=== PATIENT | female | born 1945 | race Caucasian/White ===

== ENCOUNTER → 2017-07-08 08:55 | Outpatient (CLI) | payer MEDICARE, SELFPAY ==
--- NOTE | 2017-07-08 08:57 | BI_ITS ---
MAMMOGRAPHY - BILATERAL SCREENING 3-D SMITHA SYNTHESIS REASON FOR EXAM: Female, 72 years old. Bilateral Screening 3-D tomosynthesis PERTINENT HISTORY: No significant family history. TECHNIQUE: 2-D mammograms and 3-D Smitha synthesis of the breast (s) were performed. CAD was performed. COMPARISON: None. FINDINGS: The breast composition is heterogeneously dense that can obscure small breast masses. Scattered benign calcifications are seen. No dense spiculated masses or suspicious microcalcifications are identified. No architectural distortion is identified. There is no skin thickening or retraction. There has been no significant change since the prior study. BI/SCREENING MAMM (CAD), BILAT IMPRESSION: No mammographic signs of malignancy. Routine yearly mammograms recommended. ASSESSMENT CATEGORY: BIRADS Category 2: Benign. A letter regarding these results will be sent to the patient by the facility within 30 days. FOLLOW UP RECOMMENDATION: Yearly follow up mammogram recommended. (A) Approximately 10% of breast cancers are not detected by mammography. A normal mammogram should not delay biopsy of a clinically suspicious abnormality. Electronically Signed: Dustin Jewell MD at 11:37 EDT , Service support ,
== END ==
PROVIDERS: Family Provider Family Medicine; PCP Family Medicine; Visit Provider Family Medicine
DX: Z12.31 Encounter for screening mammogram for malignant neoplasm of breast (principal)
CPT/HCPCS: 77063; 77067

== ENCOUNTER → 2018-07-11 12:42 | Outpatient (CLI) | payer MEDICARE, SELFPAY ==
--- NOTE | 2018-07-11 12:50 | CDU_ITS ---
Reason For Study: DIZZINESS Rt. Velocities/BP Lt. Velocities/BP Prox CCA 64/15 cm/sec. Prox CCA 79/23 cm/sec. Mid CCA 67/17 cm/sec. Mid CCA 81/20 cm/sec. Dist CCA 68/23 cm/sec. Dist CCA 72/23 cm/sec. Prox ICA 62/23 cm/sec. Prox ICA 54/20 cm/sec. Mid ICA 62/20 cm/sec. Mid ICA 76/30 cm/sec. Dist ICA 80/29 cm/sec. Dist ICA 83/32 cm/sec. Rt. ICA/CCA = 1.2. Lt. ICA/CCA = 1.0. Prox ECA 101/11 cm/sec. Prox ECA 102/10 cm/sec. Rt. Vert. 47/10 cm/sec. Lt. Vert. 49/15 cm/sec. Right Extracranial There is intimal thickening but no significant atherosclerotic plaque noted in the right common carotid artery. There is homogeneous, irregular atherosclerotic plaque noted in the right internal carotid artery. There is homogeneous, smooth atherosclerotic plaque noted in the right external carotid artery. Antegrade flow is noted in the right vertebral artery. Left Extracranial There is homogeneous, smooth atherosclerotic plaque noted in the left common carotid artery. There is heterogeneous, irregular atherosclerotic plaque noted in the left internal carotid artery. There is homogeneous, smooth atherosclerotic plaque noted in the left external carotid artery. Antegrade flow is noted in the left vertebral artery. Procedure Carotid Duplex [id number]. Exam performed in department. Interpretation Summary Mild (<50%) stenosis right extracranial internal carotid. Mild (<50%) stenosis left extracranial internal carotid. Flow within the vertebral arteries is antegrade bilaterally. Ordering Physician: Eliazar Brown Referring Physician: Eliazar Brown Performed By: Renetta Moncada, ASHTYN, RVT
== END ==
PROVIDERS: Family Provider Family Medicine; PCP Family Medicine; Referring Provider Family Medicine; Visit Provider Family Medicine
DX: R42 Dizziness and giddiness (principal)
CPT/HCPCS: 93880

== ENCOUNTER → 2019-09-17 | Outpatient (CLI) | payer MEDICARE, SELFPAY ==
--- NOTE | 2019-09-17 15:06 | BI_ITS ---
MAMMOGRAPHY - BILATERAL SCREENING REASON FOR EXAM: Female, 74 years old. Routine annual screening examination. PERTINENT HISTORY: Non-contributory. TECHNIQUE: Digital bilateral breast smitha (3D mammographic acquisition) in the CC and MLO projections. 2-D mediolateral oblique (MLO) and craniocaudad (CC) views of both breasts were obtained. CAD: Full Field Digital Mammography with Computer Added Detection was performed. COMPARISON: Comparison is made with prior study dated July 08, 2017 and September 21, 2015. FINDINGS: Breast Composition: The breasts are heterogeneously dense, which may obscure small masses. There are no dominant masses or suspicious calcifications. No other significant abnormalities are identified. There has been no significant change since the prior study. BI/SCREEN MAMM (CAD) W/SMITHA BILAT IMPRESSION: Stable bilateral screening mammogram. Yearly follow-up mammogram recommended. (A) ASSESSMENT CATEGORY: BIRADS Category 1: Negative. A letter regarding these results will be sent to the patient by the facility within 30 days. Approximately 10% of breast cancers are not detected by mammography. A normal mammogram should not delay biopsy of a clinically suspicious abnormality. [id number] Electronically Signed: Mic Medrano, at 8:03 EDT , Service support ,
== END | disposition home or self-care (01) ==
LOC: OPBI 15:04
PROVIDERS: PCP Family Medicine; Referring Provider Family Medicine; Visit Provider Family Medicine
DX: Z12.31 Encounter for screening mammogram for malignant neoplasm of breast (principal)
CPT/HCPCS: 77063; 77067

== ENCOUNTER → 2020-11-01 09:21 | Outpatient (CLI) | payer MEDICARE, SELFPAY ==
--- NOTE | 2020-11-01 09:30 | BD_ITS ---
STUDY: DUAL ENERGY X-RAY ABSORPTIOMETRY / DXA REASON FOR EXAM: Female, 75 years old. M810. Patient is postmenopausal. TECHNIQUE: Bone Mineral Density (BMD) measurements of lumbar spine and bilateral hips were obtained. COMPARISON: None. FINDINGS: Lumbar Spine (L1-L4): g/cm2 (0.838) / T-score (-1.9) / Z-score (0.6) Findings are suggestive of osteopenia with a moderate fracture risk. Left Femur Total: g/cm2 (0.790) / T-score (-1.2) / Z-score (0.7) Left Femoral Neck: g/cm2 (0.6-2) / T-score (-2.0) / Z-score (0.2) Right Femur Total: g/cm2 (0.86) / T-score (-0.6) / Z-score (1.3) Right Femoral Neck: g/cm2 (0.732) / T-score (1.1) / Z-score (1.1) BD/Dexa Bone Density Study IMPRESSION: The patient is considered osteopenic as outlined below according to World George Organization (WHO) criteria with a moderate fracture risk. Reference Information: The T-score is the number of standard deviations above or below the standard which is normal for young adults at their peak bone mineral density. The World Health Organization (WHO) interprets the T-scores as follows: Above -1 Normal bone density Between -1 and -2.5 Osteopenia Equal to / or below -2.5 Osteoporosis As a practical clinical guideline, osteopenia may be graded as follows: Mild -1 through -1.5 Moderate -1.6 through -2.0 Severe -2.1 through -2.4 The Z-score is the number of standard deviations above or below age-matched controls. A Z-score of less than -1.5 would be considered abnormal. References: 1. NIH Osteoporosis and Related Bone Diseases www osteo.org 2. International Society for Clinical Densitometry www iscd.org 3. National Osteoporosis Foundation www nof.org Electronically Signed: Mic Medrano MD at 14:48 EDT , Service support ,
== END ==
PROVIDERS: PCP Family Medicine; Referring Provider Family Medicine; Visit Provider Family Medicine
DX: M81.0 Age-related osteoporosis without current pathological fracture (principal); Z78.0 Asymptomatic menopausal state
CPT/HCPCS: 77080

== ENCOUNTER → 2022-04-13 | Outpatient (CLI) | payer MEDICARE, SELFPAY ==
--- NOTE | 2022-04-13 13:24 | BI_ITS ---
MAMMOGRAPHY - BILATERAL SCREENING REASON FOR EXAM: Female, 77 years old. Routine annual screening examination. PERTINENT HISTORY: Non-contributory. TECHNIQUE: Digital bilateral breast smitha (3D mammographic acquisition) in the CC and MLO projections. 2-D mediolateral oblique (MLO) and craniocaudad (CC) views of both breasts were obtained. CAD: Full Field Digital Mammography with Computer Added Detection was performed. COMPARISON: Comparison is made with prior examination dated 09/17/2019 and 07/08/2017. FINDINGS: Breast Composition: The breasts are heterogeneously dense, which may obscure small masses. There are no dominant masses or suspicious calcifications. Stable small benign-appearing bilateral axillary lymph nodes. No other significant abnormalities are identified. There has been no significant change since the prior study. BI/SCRN MAMM (CAD)W/SMITHA BILAT IMPRESSION: Stable bilateral screening mammogram. Yearly follow-up mammogram recommended. (A) ASSESSMENT CATEGORY: BIRADS Category 2: Benign. A letter regarding these results will be sent to the patient by the facility within 30 days. Approximately 10% of breast cancers are not detected by mammography. A normal mammogram should not delay biopsy of a clinically suspicious abnormality. [id number] Electronically Signed: Mic Medrano MD at 14:07 EST ,
== END | disposition home or self-care (01) ==
LOC: OPBI 13:21
PROVIDERS: PCP Family Medicine; Referring Provider Family Medicine; Visit Provider Family Medicine
DX: Z12.31 Encounter for screening mammogram for malignant neoplasm of breast (principal)
CPT/HCPCS: 77063; 77067

== ENCOUNTER 2022-11-23 19:08 | Emergency (ER) | payer MEDICARE, SELFPAY ==
[2022-11-23 19:16] VITALS: BP 180/90; PULSE 81; RESP 16; TEMP 36.4; O2SAT 92; BMI 25.8
[2022-11-23 19:40] LABS: Absolute Lymphocyte Count 1.51 X10^3/uL (0.83-4.51); Absolute Neutrophil Count 5.8 X10^3/uL (2.0-7.7); Basophil# 0.05 X10^3/uL; Basophil% 0.6 % (0-1); Eosinophil# 0.22 X10^3/uL; Eosinophils% 2.8 % (0-5); Hematocrit 46.5 % (37-47); Hemoglobin 14.9 g/dL (12.0-15.0); Lymphocyte # 1.51 X10^3/ul (0.83-4.51); Lymphocyte % 19.1 % (19-41); Mean Corpuscular Hgb 28.8 pg (27.0-32.0); Mean Corpuscular Volume 89.9 fL (81-99); Mean Platelet Vol. 10.5 fl (6.2-12.0); Monocyte# 0.35 X10^3/uL; Monocyte% 4.4 % (0-10); NRBC Flagged by Analyzer 0 % (0-5); Neutrophil # 5.76 X10^3/uL (2.7-7.7); Neutrophil % 72.8 % (47-70); Platelet Count 208 K/mm3 (150-450); RBC Distribution Width CV 13.2 % (11.6-14.6); RBC Distribution Width SD 43.5 fl (35.1-43.9); Red Blood Count 5.17 M/mm3 (4.2-5.4); White Blood Count 7.9 K/mm3 (4.4-11.0)
[2022-11-23 20:02] LABS: Anion Gap 4 (5-15); BUN 15 mg/dL (7-18); Calcium,Total 9.1 mg/dL (8.5-10.1); Chloride 105 mmol/L (98-107); Creatinine, Serum 0.65 mg/dL (0.55-1.02); EST Glomerular Filtration Rate 93 mL/min (>60); Est Glom Filt Rate - Afr Amer 113 mL/min (>60); Estimated Creatinine Clearance 37.74 ml/min; Glucose 126 mg/dL (74-106); Potassium 3.5 mmol/L (3.5-5.1); Sodium Level 140 mmol/L (136-145)
[2022-11-23 21:37] VITALS: RESP 22; O2SAT 94
[2022-11-23 21:41] VITALS: O2SAT 24
[2022-11-23 21:43] VITALS: BP 166/84; PULSE 88; RESP 25; O2SAT 94; O2SAT 95
[2022-11-23 22:18] VITALS: BP 160/90; PULSE 82; RESP 20; O2SAT 93
--- NOTE | 2022-11-23 22:20 | ED.VIS.DYS ---
HPI History of Present Illness Chief Complaint: Shortness of Breath Narrative Narrative: 77-year-old female with history of asthma presenting with shortness of breath. She states she is feeling like she is tight. Patient received a breathing treatment in route via EMS and states she feels much better. No fevers or chills. No cough. She has not feel ill. She actually feels a lot better now that she is been treated. She is not having any chest pain. [facility] Medical History Anxiety Asthma Dementia Former smoker Hypothyroidism Home Medications albuterol sulfate 90 mcg/actuation aerosol inhaler 2 puff inhalation Q4H PRN wheezing 11/23/22 [History Last Taken Unknown] budesonide-formoterol HFA 80 mcg-4.5 mcg/actuation aerosol inhaler (Symbicort) 2 puff inhalation DAILY asthma 11/23/22 [History Last Taken Unknown] cholecalciferol (vitamin D3) 50 mcg (2,000 unit) capsule 2,000 unit PO DAILY 11/23/22 [History Last Taken Unknown] hgwixwve-vvw-sdofe ac 400 mcg-calcium carb 500 mg-vit K1 20 mcg tablet (Women's 50 Plus Daily Formula) 1 tab PO DAILY 11/23/22 [History Last Taken Unknown] pravastatin 40 mg tablet 40 mg PO DAILY 11/23/22 [History Last Taken Unknown] prednisone 50 mg tablet 50 mg PO DAILY #5 tabs 11/23/22 [Rx Last Taken Unknown] Allergy/AdvReac Type Severity Reaction Status Date / Time No Known Allergies Allergy Verified 11/23/22 19:16 Surgical History H/O neck surgery Social History Smoking Status: Former smoker ROS ROS ED Constitutional Constitutional ED: Denies chills, fever(s) or sweats Eyes Eyes: Denies blurry vision or change in vision ENT ENT ED: Denies ear pain or sore throat Cardiovascular Cardiovascular: Denies chest pain, palpitations or racing heartbeat Respiratory/Chest Respiratory/Chest: Reports dyspnea and dyspnea on exertion; Denies cough or sputum Gastrointestinal Gastrointestinal: Denies abdominal pain, constipation, diarrhea, nausea or vomiting Genitourinary Genitourinary ED: Denies dysuria, hematuria or urinary frequency Musculoskeletal Musculoskeletal: Denies arthralgias, myalgias or neck pain Integumentary Denies abscess, Abrasions or rash Neurologic Neurologic: Denies headache(s), paresthesias or weakness Psychiatric Psychiatric: Denies anxiety, depression, suicidal ideation or suicidal thoughts Endocrine Endocrinology: Denies polydipsia or polyuria EXAM Physical Exam Const Vital Signs: 11/23/22 19:16 11/23/22 21:37 11/23/22 21:41 Temperature 97.5 F L Temperature Source Temporal Pulse Rate 81 Respiratory Rate 16 22 H Respiratory Effort Normal Non-Labored Respiratory Depth Normal Respiratory Pattern Normal Blood Pressure 180/90 H Blood Pressure Mean 120 Pulse Ox 92 94 Oxygen Delivery Method Room Air Room Air Room Air 11/23/22 21:43 11/23/22 21:43 11/23/22 22:18 Temperature Temperature Source Pulse Rate 88 82 Respiratory Rate 25 H 20 H Respiratory Effort Respiratory Depth Respiratory Pattern Blood Pressure 166/84 H 160/90 H Blood Pressure Mean 111 Pulse Ox 95 94 93 Oxygen Delivery Method Room Air Room Air Positive well nourished General Appearance ED: NAD HEENT Reports moist mucous membranes Eyes PERRL and EOMs intact bilaterally Neck no lymphadenopathy Resp normal respiratory effort and clear to auscultation bilaterally Auscultation: Negative for rales, rhonchi or wheezes Cardio regular rate and regular rhythm GI non-tender Neuro oriented x3 and CN's II-XII intact bilaterally Sensorium / Orientation: alert Motor Exam: strength 5/5 throughout Psych mental status grossly normal Skin no wounds MDM MDM MDM Narrative Medical decision making narrative: Patient presenting with shortness of breath. She feels that she is wheezing. She was given a breathing treatment via EMS. Pharyngeal includes pneumonia, asthma exacerbation, COVID, influenza dehydration, electrolyte abnormalities. Patient was not wheezing on my initial examination after breathing treatments. CBC was obtained to assess white blood cell count, hemoglobin and platelets and this was all normal. Renal function electrolytes within normal limits. Patient was given prednisone 60 mg p.o. COVID and influenza were negative. Since blood work is unremarkable I do not feel chest x-ray. She got up and went to the bathroom and started to have some wheezing and breathing treatment. At this point she is feeling better and I feel she can be safely discharged home. Impression: 1. Asthma exacerbation Lab Data Attestation: I reviewed the patient's lab results. Labs: Laboratory Results - last 24 hr 11/23/22 19:30 WBC 7.9 RBC 5.17 Hgb 14.9 Hct 46.5 MCV 89.9 MCH 28.8 MCHC 32.0 RDW Std Deviation 43.5 RDW Coeff of Theresa 13.2 Plt Count 208 MPV 10.5 Immature Gran % (Auto) 0.300 Neut % (Auto) 72.8 H Lymph % (Auto) 19.1 [place] % (Auto) 4.4 Eos % (Auto) 2.8 Baso % (Auto) 0.6 Absolute Neuts (auto) 5.8 Absolute Lymphs (auto) 1.51 Nucleated RBC % 0 Sodium 140 Potassium 3.5 Chloride 105 Carbon Dioxide 31.0 Anion Gap 4 L BUN 15 Creatinine 0.65 Estim Creat Clear Calc 37.74 Est GFR (MDRD) Af Amer 113 Est GFR (MDRD) Non-Af 93 BUN/Creatinine Ratio 23.0 H Glucose 126 H Calcium 9.1 Discharge Plan Triage Chief Complaint: Shortness of Breath ED Provider: Jacob Mar Dx/Rx/DC Orders Instructions: ED Asthma, Acute (Adult) Prescriptions: New prednisone 50 mg tablet 50 mg PO DAILY Qty: 5 0RF No Action albuterol sulfate 90 mcg/actuation HFA aerosol inhaler 2 puff INHALATION Q4H PRN (Reason: wheezing) budesonide-formoterol [Symbicort] 80-4.5 mcg/actuation HFA aerosol inhaler 2 puff INHALATION DAILY pravastatin 40 mg tablet 40 mg PO DAILY Women's 50 Plus Daily Formula 400 mcg-500 mg calcium-20 mcg tablet 1 tab PO DAILY cholecalciferol (vitamin D3) 50 mcg (2,000 unit) capsule 2,000 unit PO DAILY Primary Care Provider: Eliazar Brown Referrals: Eliazar Bronw MD [Primary Care Provider] - Disposition Disposition: Home, Self Care Discharge Date/Time: 11/23/22 22:45
[2022-11-23] MEDS: predniSONE 20 MG Tablet 60 MG PO (22:24)
[2022-11-23] MEDS: Albuterol 2.5 MG/3 ML VIAL.NEB. INHALATION (22:38)
== END 2022-11-23 22:45 | disposition home or self-care (01) ==
PROVIDERS: Emergency Provider Student in an Organized Health Care Education/Training Program; PCP Family Medicine; Visit Provider Student in an Organized Health Care Education/Training Program
DX: J45.901 Unspecified asthma with (acute) exacerbation (principal); Z87.891 Personal history of nicotine dependence; Z79.899 Other long term (current) drug therapy; Z79.52 Long term (current) use of systemic steroids; Z79.51 Long term (current) use of inhaled steroids
CPT/HCPCS: 80048; 85025; 87811; 94640; 99285; A4216

== ENCOUNTER → 2024-01-10 | Outpatient (CLI) | payer MEDICARE, SELFPAY ==
[2024-01-10 12:25] LABS: Absolute Lymphocyte Count 1.45 X10^3/uL (0.83-4.51); Absolute Neutrophil Count 4.3 X10^3/uL (2.0-7.7); Basophil# 0.05 X10^3/uL; Basophil% 0.8 % (0-1); Eosinophil# 0.14 X10^3/uL; Eosinophils% 2.2 % (0-5); Hematocrit 49.2 % (37-47); Hemoglobin 15.6 g/dL (12.0-15.0); Lymphocyte # 1.45 X10^3/ul (0.83-4.51); Lymphocyte % 22.8 % (19-41); Mean Corp Hgb Conc 31.7 g/dL (32-36); Mean Corpuscular Hgb 28.5 pg (27.0-32.0); Mean Corpuscular Volume 89.9 fL (81-99); Mean Platelet Vol. 10.9 fl (6.2-12.0); Monocyte# 0.46 X10^3/uL; Monocyte% 7.2 % (0-10); NRBC Flagged by Analyzer 0 % (0-5); Neutrophil # 4.25 X10^3/uL (2.7-7.7); Neutrophil % 66.7 % (47-70); Platelet Count 227 K/mm3 (150-450); RBC Distribution Width CV 13.6 % (11.6-14.6); Red Blood Count 5.47 M/mm3 (4.2-5.4); White Blood Count 6.4 K/mm3 (4.4-11.0)
[2024-01-10 13:02] LABS: AST(SGOT) 26 U/L (15-37); Alanine Aminotransfer ALT/SGPT 25 U/L (13-56); Albumin, Serum 3.8 g/dL (3.2-5.0); Alkaline Phosphatase 81 U/L (45-117); Anion Gap 5 (5-15); BUN 13 mg/dL (7-18); BUN/Creat Ratio 19.7 RATIO (10-20); Calcium,Total 9.3 mg/dL (8.5-10.1); Chloride 106 mmol/L (98-107); Cholesterol 219 mg/dL (200); Creatinine, Serum 0.66 mg/dL (0.55-1.02); EST Glomerular Filtration Rate 91 mL/min (>60); Est Glom Filt Rate - Afr Amer 110 mL/min (>60); Globulin 3.8 g/dL (2.2-4.2); Glucose 82 mg/dL (74-106); High Density Lipoprotein 99 mg/dL; Protein, Total 7.6 g/dL (6.4-8.2); Sodium Level 142 mmol/L (136-145); Triglycerides 80 mg/dL; Very Low Density Lipoprotein 16 mg/dL (5-40)
[2024-01-10 14:08] LABS: Vitamin D,25 Hydroxy 38.6 ng/mL
== END | disposition home or self-care (01) ==
LOC: MTLAB 11:11
PROVIDERS: PCP Nurse Practitioner Family; Referring Provider Nurse Practitioner Family; Visit Provider Nurse Practitioner Family
DX: E78.5 Hyperlipidemia, unspecified (principal); I10 Essential (primary) hypertension; E55.9 Vitamin D deficiency, unspecified
CPT/HCPCS: 36415; 80053; 80061; 82306; 85025

== ENCOUNTER → 2024-04-14 | Outpatient (CLI) | payer MEDICARE, SELFPAY ==
--- NOTE | 2024-04-14 12:31 | BI_ITS ---
PROCEDURE: SCRN MAMM (CAD)W/SMITHA BILAT REASON FOR EXAM: F, Age 79 y/o, presents for annual screening mammography. TECHNIQUE: Bilateral screening digital breast tomosynthesis with 2D and 3D images. Computer aided detection. COMPARISON: No priors available. FINDINGS: There are scattered areas of fibroglandular density. No suspicious masses, areas of developing architectural distortion, or suspicious calcifications. BI/SCRN MAMM (CAD)W/SMITHA BILAT IMPRESSION: There is no mammographic evidence of malignancy. BI-RADS 1: NEGATIVE. RECOMMEND ANNUAL MAMMOGRAPHIC SCREENING. Follow-up code: Routine Follow-up The patient will be notified of the results by letter. Reading Location: [id number]
== END | disposition home or self-care (01) ==
LOC: OPBI 12:29
PROVIDERS: PCP Nurse Practitioner Family; Referring Provider Nurse Practitioner Family; Visit Provider Nurse Practitioner Family
DX: Z12.31 Encounter for screening mammogram for malignant neoplasm of breast (principal)
CPT/HCPCS: 77063; 77067

== ENCOUNTER 2024-12-23 16:30 | Emergency (ER) | payer MEDICARE, SELFPAY ==
[2024-12-23 16:31] VITALS: BP 161/96; PULSE 92; RESP 21; TEMP 36.4; O2SAT 100; BMI 24.8
--- NOTE | 2024-12-23 17:04 | EDS_ITS ---
HPI History of Present Illness Chief Complaint: Hypertension Informant: patient Onset/Context/Timing Onset: Days Context: Gradual Onset Timing: Waxes and wanes Worsened by: Stress Relieved by: Nothing Narrative Narrative: Patient presents with elevated blood pressures that have been getting worse over the past couple days. Patient states they are gradually getting worse. Patient states she is under stress at work which is causing her blood pressure become elevated. Patient states that her blood pressures today were 205/99, 192/105, and 193/92 just prior to coming to the emergency department. Patient denies any chest pain or shortness of breath. Patient does admit to some pain in her back. Patient denies any fevers or chills. Patient denies any nausea or vomiting. Patient denies any headaches. Patient denies any visual changes. [facility] Medical History (Updated 12/23/24 @ 19:[address] Javon Matthew, ) Anxiety Hypothyroidism Former smoker Asthma Dementia Home Medications ?Medication ?Instructions ?Recorded ?Last Taken ?Type albuterol sulfate 90 mcg/actuation 2 puff inhalation Q 4H PRN wheezing 11/23/22 Unknown History aerosol inhaler budesonide-formoterol HFA 80 2 puff inhalation DAILY a sthma 11/23/22 Unknown History mcg-4.5 mcg/actuation aerosol inhaler (Symbicort) cholecalciferol (vitamin D3) 50 2,000 unit PO DAILY Unknown History mcg (2,000 unit) capsule ashibkpe-jwp-ryhwe ac 400 1 tab PO DAILY 11/23/22 Unkn own History mcg-calcium carb 500 mg-vit K1 20 mcg tablet (Women's 50 Plus Daily Formula) pravastatin 40 mg tablet 40 mg PO DAILY 11/23/22 Unkn own History prednisone 50 mg tablet 50 mg PO DAILY #5 tabs 11/23 Unknown Rx amlodipine 5 mg tablet 5 mg PO DAILY #7 tabs Unknown Rx Allergy/AdvReac Type Severity Reaction Status Date / Time No Known Allergies Allergy Verified 12/23/24 16:31 Surgical History H/O neck surgery Social History Smoking Status: Former smoker ROS ROS ED Constitutional Constitutional ED: Denies chills or fever(s) Eyes Eyes: Denies blurry vision or change in vision ENT ENT ED: Denies rhinorrhea or sore throat Cardiovascular Cardiovascular: Denies chest pain or palpitations Respiratory/Chest Respiratory/Chest: Denies cough or dyspnea Gastrointestinal Gastrointestinal: Denies nausea or vomiting Genitourinary Genitourinary ED: Denies dysuria or hematuria Musculoskeletal Musculoskeletal: Reports back pain; Denies neck pain Integumentary Denies abscess or rash Neurologic Neurologic: Denies headache(s) or weakness Allergic/Immunologic Allergic/Immunologic ED: Denies mouth swelling or urticaria EXAM Physical Exam Const Vital Signs: 12/23/24 16:31 12/23/24 17:41 12/23/24 18:46 Temperature 97.5 F L Temperature Source Temporal Pulse Rate 92 70 Respiratory Rate 21 H 16 Respiratory Effort Normal Non-Labored Respiratory Pattern Normal Blood Pressure 161/96 H 140/84 H Blood Pressure Mean 117 102 Pulse Ox 100 98 Oxygen Delivery Method Room Air Room Air Positive well nourished and well developed General Appearance ED: well developed and NAD HEENT Reports moist mucous membranes Neck supple and no JVD Resp normal respiratory effort and clear to auscultation bilaterally Cardio regular rate and regular rhythm GI non-tender and non-distended Palpation: soft Extremity normal to inspection General Extremety ED: Negative for edema or tenderness General Extremity: Negative for edema Neuro oriented x3, CN's II-XII intact bilaterally and no sensory deficits noted Sensorium / Orientation: alert Motor Exam: strength 5/5 throughout Psych mental status grossly normal MDM MDM MDM Narrative Medical decision making narrative: Differential diagnosis includes but is not limited to cardiac dysrhythmia, cardiac ischemia, hypertensive urgency, hypertensive emergency, electrolyte abnormality, and anxiety. EKG will be obtained to assess for cardiac dysrhythmia and cardiac ischemia. Chest x-ray will be obtained to assess for pneumonia, bronchitis, and widened mediastinum. CBC will be obtained to assess for leukocytosis and anemia. Basic metabolic profile will be obtained to assess for electrolyte abnormality and renal function. Lab Data Attestation: I reviewed the patient's lab results. Lab results narrative: CBC was reviewed and was essentially within normal limits. Basic metabolic profile was reviewed and was essentially within normal limits. High-sensitivity troponin was reviewed and was normal at 7. Labs: Laboratory Results - last 24 hr 12/23/24 17:29 WBC 7.2 RBC 5.36 Hgb 15.6 H Hct 47.1 H MCV 87.9 MCH 29.1 MCHC 33.1 RDW Std Deviation 43.2 RDW Coeff of Theresa 13.2 Plt Count 256 MPV 10.5 Immature Gran % (Auto) 0.300 Neut % (Auto) 80.0 H Lymph % (Auto) 14.5 L [place] % (Auto) 4.6 Eos % (Auto) 0.3 Baso % (Auto) 0.3 Absolute Neuts (auto) 5.8 Absolute Lymphs (auto) 1.04 Nucleated RBC % 0 Sodium 141 Potassium 3.8 Chloride 102 Carbon Dioxide 27.8 Anion Gap 11 BUN 17 Creatinine 0.56 L Estim Creat Clear Calc 49.56 L Est GFR (MDRD) Non-Af 92 BUN/Creatinine Ratio 29.7 H Glucose 103 H Calcium 9.5 Troponin T High Sens 7 Radiography Chest X-Ray - ED: 2 View, Read by ED Physician, Read by Radiologist and No Acute Disease Diagnostic Testing: Clinical Impression(s) from Imaging Studies Chest X-Ray 12/23/24 17:48 IMPRESSION: Hyperaerated lungs which may reflect COPD. Reading Location: [address] [place] and lateral chest x-ray was obtained. There are 2 views. On my independent interpretation, lung tsang are hyperinflated but clear. There is normal cardiac silhouette. Bony thorax is normal. There is no acute process noted. Radiologist also interpreted the x-ray and agrees. EKG Initial EKG: Attestation: I personally reviewed and interpreted this EKG as follows: Interpretation: Sinus Rhythm (74) and No Acute Injury Pattern Comments: EKG was obtained. On my independent interpretation, it showed a normal sinus rhythm with a rate of 74. FL interval, QRS interval, and QTc intervals were all normal. [place] was normal. There are no acute ST or T wave changes. Prior EKG tracings: not available for review Prior: No Prior Treatment and Re-Evaluation :: Patient was advised of her findings. Patient's blood pressure improved to 140/84. However, just prior to discharge it went back up again to 181/84. Because of this, patient was given a dose of amlodipine here. Patient was given a prescription for amlodipine. Patient was instructed to follow-up with her primary care physician in 3 to 5 days for further evaluation and blood pressure management. Patient understood and was agreeable with the plan. All questions were answered. Discharge Plan Triage Chief Complaint: Hypertension ED Provider: Jvaon Matthew Dx/Rx/DC Orders Clinical Impression: Elevated blood pressure reading, Anxiety Instructions: ED High Blood Pressure Hypertension Prescriptions: New amlodipine 5 mg tablet 5 mg PO DAILY Qty: 7 0RF No Action albuterol sulfate 90 mcg/actuation HFA aerosol inhaler 2 puff INHALATION Q4H PRN (Reason: wheezing) budesonide-formoterol [Symbicort] 80-4.5 mcg/actuation HFA aerosol inhaler 2 puff INHALATION DAILY pravastatin 40 mg tablet 40 mg PO DAILY Women's 50 Plus Daily Formula 400 mcg-500 mg calcium-20 mcg tablet 1 tab PO DAILY cholecalciferol (vitamin D3) 50 mcg (2,000 unit) capsule 2,000 unit PO DAILY prednisone 50 mg tablet 50 mg PO DAILY Qty: 5 0RF Primary Care Provider: Lin Reid Referrals: Lin Reid, [facility] [Primary Care Provider, Family Practice] - 3-5 Days Print Language: Portuguese Disposition Disposition: Home, Self Care
--- NOTE | 2024-12-23 17:04 | EKG12_ITS ---
Test Reason : CP Blood Pressure : */* mmHG Vent. Rate : 74 BPM Atrial Rate : 74 BPM P-R Int : 170 ms QRS Dur : 86 ms QT Int : 418 ms P-R-T Axes : 64 17 52 degrees QTcB Int : 463 ms Normal sinus rhythm Normal ECG Confirmed by JESE KLINE, KASEY ([id number]), staff editor OSEAS FERRIS ([id number]) on 12/24/2024 9:53:48 AM Referred By: Confirmed By: KASEY SAWANT MD
--- NOTE | 2024-12-23 17:48 | RAD_ITS ---
PROCEDURE: CHEST PA AND LATERAL 12/23/2024 REASON FOR EXAM: HYPERTENSION TECHNIQUE: Procedure Code: RADCXR Modality: DX Procedure: CHEST PA AND LATERAL FINDINGS: The heart is normal in size. The lungs are clear. Lungs are hyperaerated. No acute osseous abnormalities. RAD/Chest PA and Lateral IMPRESSION: Hyperaerated lungs which may reflect COPD. Reading Location: [id number]
[2024-12-23 17:56] LABS: Hematocrit 47.1 % (37-47); Hemoglobin 15.6 g/dL (12.0-15.0); Immature Granulocytes Count 0.020 X10^3/uL (0.0-0.0); Mean Corp Hgb Conc 33.1 g/dL (32-36); Mean Corpuscular Volume 87.9 fL (81-99); Mean Platelet Vol. 10.5 fl (6.2-12.0); NRBC Flagged by Analyzer 0 % (0-5); Platelet Count 256 K/mm3 (150-450); RBC Distribution Width CV 13.2 % (11.6-14.6); RBC Distribution Width SD 43.2 fl (35.1-43.9); Red Blood Count 5.36 M/mm3 (4.2-5.4); White Blood Count 7.2 K/mm3 (4.4-11.0)
[2024-12-23 18:32] LABS: Anion Gap 11 (5-15); BUN 17 mg/dL (4-19); BUN/Creat Ratio 29.7 RATIO (10-20); Calcium,Total 9.5 mg/dL (7.6-11.0); Carbon Dioxide 27.8 mmol/L (21.0-32.0); Chloride 102 mmol/L (98-108); Estimated Creatinine Clearance 49.56 ml/min (50-250); Glucose 103 mg/dL (70-99); Potassium 3.8 mmol/L (3.3-5.1)
[2024-12-23 18:46] VITALS: BP 140/84; PULSE 70; RESP 16; O2SAT 98
[2024-12-23 18:57] LABS: Troponin T High Sensitivity 7 ng/L (<=14)
[2024-12-23 19:55] VITALS: BP 183/70; PULSE 78; RESP 18; TEMP 36.2; O2SAT 98
== END 2024-12-23 19:56 | disposition home or self-care (01) ==
PROVIDERS: Emergency Provider Emergency Medicine; PCP Nurse Practitioner Family; Visit Provider Emergency Medicine
DX: I10 Essential (primary) hypertension (principal); F41.9 Anxiety disorder, unspecified; M54.9 Dorsalgia, unspecified; Z87.891 Personal history of nicotine dependence; J45.909 Unspecified asthma, uncomplicated; Z79.899 Other long term (current) drug therapy; Z56.6 Other physical and mental strain related to work
CPT/HCPCS: 71046; 80048; 84484; 85025; 93005; 99284; A4216

== ENCOUNTER 2025-02-04 16:08 | Emergency (ER) | payer MEDICARE, SELFPAY ==
[2025-02-04 16:10] VITALS: BP 112/78; PULSE 92; RESP 16; TEMP 36.3; O2SAT 96; BMI 25.7
--- OUTSIDE RECORDS SUMMARY | 2025-02-04 17:23 | XMS RPT_ITS | CCD ---
Author Organization [facility] Care Team Providers Care Can Closing Machine Operator Name Role Phone Eliazar Brown Admitting Unavailable Eliazar Brown Attending Unavailable Eliazar Brown Primary Care Unavailable Bud Quinn Admitting Unavailable Bud Quinn Attending Unavailable Eliazar Brown Primary Care Unavailable Eliazar Brown Admitting Unavailable Eliazar Brown Attending Unavailable Eliazar Brown Primary Care Unavailable Eliazar Brown Unavailable Barb Wise Unavailable Unavailable Franklin, Lin Primary Care Unavailable Franklin, Lin Attending Unavailable Franklin, Lin Referring Unavailable Franklin, Lin Primary Care Unavailable Franklin, Lin Attending Unavailable Franklin, Lin Referring Unavailable Franklin, Lin Primary Care Unavailable Javon Matthew Attending Unavailable Franklin FIRE TOWER KEEPER-C, Lin Primary Care Physician Dr. Javon Matthew DO Attending Physician Dr. Javon Matthew DO Emergency Department Physi dank Allergies Allergy Classification Reported Allergen(s) Allergy Type Date of Onset Reaction(s) Facility (1 source) No Known Medication Allergies; Translations: [No Known Medication Allergies] Propensity to adverse reactions to drug (disorder) [facility] Repository Medications Current Medications Medication Drug Class(es) Dates Sig (Normalized) Sig (Original) [id number] actuat albuterol 0.09 mg/actuat metered dose inhaler (3 sources) beta2-Adrenergic Agonist Start: 11-23-2022 Start: 11-23-2022 take 1 puff(s) by in halation every four hours Albuterol Sulfate Active 2 PUFF INHALATION Q4H November 23, 2022 12:00am take 2 puff(s) by in halation every six hours Albuterol (Eqv-ProAir HFA) 90 mcg/inh inhalation aerosol ; 2 puff(s) inhaled every 6 hours Quantity: 0 Refills: 0 Ordered: 30-Jul-2020 Ghislaine Villa Generic Substitution Allowed alendronic acid 5 mg oral tablet (1 source) Bisphosphonate take 1 tablet by mouth once daily alendronate 5 mg oral tablet ; 1 tab(s) orally once a day Quantity: 0 Refills: 0 Ordered: 30-Jul-2020 Ghislaine Villa Generic Substitution Allowed amLODIPine 5 mg oral tablet (1 source) Dihydropyridine Calcium Channel Rajni Start: 12-24-19 take 1 tablet by mouth once daily Budesonide-Formoter ol [Budesonide-Formote rol Hfa 80 Mcg-4.5 Mcg/Actuation Aerosol Inhaler] (3 sources) Corticosteroid, beta2-Adrenergic Agonist Start: 11-24-19 Start: 11-23-2022 take 1 puff(s) by in halation once daily Budesonide-Formoterol [Budesonide-Formoterol Hfa 80 Mcg-4.5 Mcg/Actuation Aerosol Inhaler] (Budesonide-Formoterol Hfa 80 Mcg-4.5 Mcg/Actuation ) 80-4.5 mcg/actuation HFA aerosol inhaler Active 2 PUFF INHALATION DAILY November 23, 2022 12:00am take 2 puff(s) by in halation twice daily Symbicort 80 mcg-4.5 mcg/inh inhalation aerosol ; 2 puff(s) inhaled 2 times a day Quantity: 0 Refills: 0 Ordered: 30-Jul-2020 Ghislaine Villa Generic Substitution Allowed cholecalciferol 0.05 mg oral capsule (2 sources) Vitamin D Start: 11-23-2022 take 1 capsule by mo wih once daily Ct-Tzg-Xrait-Calcium Carb-K1 (Women's 50 Plus Daily Formula) 400 mcg-500 mg calcium-20 mcg tablet (2 sources) Start: 11-23-2022 Start: 11-23-2022 take 1 tablet by laurel th once daily Nx-Rcg-Rxnlx-Calcium Carb-K1 (Women's 50 Plus Daily Formula) 400 mcg-500 mg calcium-20 mcg tablet Active 1 TABLET PO DAILY November 23, 2022 12:00am naproxen 500 mg oral tablet (1 source) Nonsteroidal Anti-inflammatory Drug Start: 07-30-2020 End: 08-12-2020 take 1 tablet by mouth every twelve hours as needed naproxen 500 mg oral tablet ; 1 tab(s) orally every 12 hours, As Needed for pain/inflammation. Take with food. Quantity: 28 Refills: 0 Ordered: 30-Jul-2020 Barb Wise Start: 30-Jul-2020 End: 12-Aug-2020 Generic Substitution Allowed Comments: Check with your doctor before becoming .May cause drowsiness or dizziness.Obtain medical advice before taking any non-prescription drugs as some may affect the action of this medication.Take with food or milk. Comment on above: Check with your doctor before becoming p regnant.May cause drowsiness or dizziness.Obtain medical advice before taking any non-prescription drugs as some may affect the action of this medication.Take with food or milk. pravastatin sodium 40 mg oral tablet (3 sources) HMG-CoA Reductase Inhibitor Start: 11-23-2022 take 1 tablet by mouth once daily take 1 tablet by mouth once christiana y pravastatin 10 mg oral tablet ; 1 tab(s) orally once a day Quantity: 0 Refills: 0 Ordered: 30-Jul-2020 Ghislaine Villa Generic Substitution Allowed predniSONE 50 mg oral tablet (2 sources) Start: 11-23-2022 take 1 tablet by mouth once da eric Problems Active Problems Problem Classification Problem Date Documented Da te Episodic/Chronic Anxiety disorders (1 source) Anxiety; Translations: [Anxiety disorder, unspecified] 12-23-2024 Chronic Asthma (1 source) Asthma; Translations: [Unspecified asthma, uncomplicated] 12-23-2024 Chronic Delirium, dementia, and amnestic and other cognitive disorders (1 source) Dementia; Translations: [Unspecified dementia without behavioral disturbance] 12-23-2024 Chronic Disorders of lipid metabolism (1 source) Hyperlipidemia, unspecified; Translations: [Hyperlipidemia, unspecified] Onset: 02-03-2024 Chronic Essential hypertension (1 source) Essential (primary) hypertension; Translations: [Essential (primary) hypertension] Onset: 12-29-2024 Chronic Osteoporosis (2 sources) Osteoporosis; Translations: [Osteoporosis, unspecified] 07-30-2020 Chronic Other circulatory disease (1 source) Elevated blood pressure; Translations: [Elevated blood-pressure reading, without diagnosis of hypertension] 12-31-2024 Episodic Other non-traumatic joint disorders (2 sources) Hip pain 07-30-2020 Episodic Comment on above: LEFT HIP PAIN Sprains and strains (3 sources) Strain of flexor muscle of hip; Translations: [Sprains and strains of unspecified site of hip and thigh] 07-30-2020 Episodic Thyroid disorders (1 source) Hypothyroidism; Translations: [Hypothyroidism, unspecified] 12-23-2024 Chronic Unclassified (1 source) Strain of left hip 07-30-2020 Past or Other Problems Problem Classification Problem Date Documented Da te Episodic/Chronic Other screening for suspected conditions (not mental disorders or infectious disease) (1 source) Encounter for screening mammogram for malignant neoplasm of breast; Translations: [Encounter for screening mammogram for malignant neoplasm of breast] Onset: 04-29-2024 Episodic Results Test Name Value Interpretation Reference Range Facility 12 Lead EKGon 12-23-2024 12 Lead EKG [facility] Cardiovascular Services [address] [place] [address] 12 Lead EKG 12/23/24 1733 MR#: [id number] Acct: [id number] Name: CHRISTY QUEZADA Rep #: [id number] : 1945 79 From: David Velazquez MD Attending Dr: Status: DEP ER Ordering Dr: Javon Matthew DO Date: 12/23/24 Location: ED Sex: F C Admitted: Test Reason : CP Blood Pressure : */* mmHG Vent. Rate : 74 BPM Atrial Rate : 74 BPM P-R Int : 170 ms QRS Dur : 86 ms QT Int : 418 ms P-R-T Axes : 64 17 52 degrees QTcB Int : 463 ms Normal sinus rhythm Normal ECG Confirmed by DAVID VELAZQUEZ MD ([id number]), editor continuity and script OSEAS FERRIS ([id number]) on 12/24/2024 9:53:48 AM Referred By: Confirmed By: DAVID VELAZQUEZ MD 12/24/24 0953 Date David Velazquez MD CC: DANNY Reid; Dr. Javon Matthew, DO Signed Normal [facility] Absolute lymphocyte countOrd ered By: Javon Matthew on 12-23-2024 Lymphocytes Auto (Unsp spec) [#/Vol] 1.04 10*3/uL 0.83-4.51 [facility] Absolute neutrophil countOrd ered By: Javon Matthew on 12-23-2024 Neutrophils (Bld) [#/Vol] 5.8 10*3/uL 2.0-7.7 [facility] Anion gap in Serum or Plasma Ordered By: Javon Matthew on 12-23-2024 Anion gap [Moles/Vol] 11 mmol/L 07-23 [facility] Automated lymphocyte count a s percentage of total leukocytesOrdered By: Javon Matthew on 12-23-2024 Lymphocytes/100 WBC Auto (Unsp spec) 14.5 % Low 19-41 [facility] BUN/creatinine ratioOrdered By: Javon Matthew on 12-23-2024 Urea nitrogen/Creatinine [Mass ratio] 29.7 mg/mg High 10 [facility] Basic Metabolic Profile (BMP )on 12-23-2024 BUN/CRE 29.7 RATIO High 12-28 [facility] Comment on above: Performed By: #### L 100.0100, L500.2500 #### [facility] [address] [place], [address] Calcium [Mass/Vol] 9.5 mg/dL Normal 7.6-11.0 [facility] Comment on above: Performed By: #### L 100.0100, L500.2500 #### [facility] [address] [place], [address] Chloride [Moles/Vol] 102 mmol/L Normal 98-108 [facility] Comment on above: Performed By: #### L 100.0100, L500.2500 #### [facility] [address] [place], [address] CO2 [Moles/Vol] 27.8 mmol/L Normal 21.0-32.0 [facility] Comment on above: Performed By: #### L 100.0100, L500.2500 #### [facility] [address] [place], [address] Creatinine [Mass/Vol] 0.56 mg/dL Low 0.70-1.20 [facility] Comment on above: Performed By: #### L 100.0100, L500.2500 #### [facility] [address] [place], [address] ECRCL 49.56 ml/min Low 50-250 [facility] Comment on above: Performed By: #### L 100.0100, L500.2500 #### [facility] [address] [place], [address] GAP 11 Normal 5-15 [facility] Comment on above: Performed By: #### L 100.0100, L500.2500 #### [facility] [address] [place], [address] GFR/1.73 sq M.predicted among non-blacks MDRD (S/P/Bld) [Vol rate/Area] 92 mL/min/{1.73_m2} Normal >60 [facility] Comment on above: Result Comment: mL/m in/1.73m2 CKD-EPI Creatinine Equation (2020) Performed By: #### L 100.0100, L500.2500 #### [facility] [address] [place], [address] Glucose [Mass/Vol] 103 mg/dL High 70-99 [facility] Comment on above: Performed By: #### L 100.0100, L500.2500 #### [facility] [address] [place], [address] Potassium [Moles/Vol] 3.8 mmol/L Normal 3.3-5.1 [facility] Comment on above: Performed By: #### L 100.0100, L500.2500 #### [facility] [address] [place], [address] Sodium [Moles/Vol] 141 mmol/L Normal 133-145 [facility] Comment on above: Performed By: #### L 100.0100, L500.2500 #### [facility] [address] [place], [address] Urea nitrogen [Mass/Vol] 17 mg/dL Normal 4-19 [facility] Comment on above: Performed By: #### L 100.0100, L500.2500 #### [facility] [address] [place], [address] Basophil percentageOrdered B y: Javon Matthew on 12-23-2024 Basophils/100 WBC (Bld) 0.3 % 0-[address] [facility] CBC W/Diff, Automatedon 12-09 Absolute Lymph 1.04 X10 3/uL Normal 0.83-4.51 [facility] Comment on above: Performed By: #### L 100.0100, L500.2500 #### [facility] [address] [place], [address] Absolute Neut 5.8 X10 3/uL Normal 2.0-7.7 [facility] Comment on above: Performed By: #### L 100.0100, L500.2500 #### [facility] [address] [place], [address] Basophils/100 WBC (Bld) 0.3 % Normal 0-[address] [facility] Comment on above: Performed By: #### L 100.0100, L500.2500 #### [facility] [address] [place], [address] Eosinophils/100 WBC (Bld) 0.3 % Normal 0-5 [facility] Comment on above: Performed By: #### L 100.0100, L500.2500 #### [facility] [address] [place], [address] Erythrocyte distribution width (RBC) [Ratio] 13.2 % Normal 11.6-14.6 [facility] Comment on above: Performed By: #### L 100.0100, L500.2500 #### [facility] [address] [place], [address] Hematocrit (Bld) [Volume fraction] 47.1 % High 37-47 [facility] Comment on above: Performed By: #### L 100.0100, L500.2500 #### [facility] [address] [place], [address] Hemoglobin (Bld) [Mass/Vol] 15.6 g/dL High 12.0-15.0 [facility] Comment on above: Performed By: #### L 100.0100, L500.2500 #### [facility] [address] [place], [address] IG% 0.300 Normal 0.0-0.9 [facility] Comment on above: Result Comment: IG% - Immature Granulocytes (promyelocytes, myelocytes and metamyelocytes) > 1% indicates that a LEFT SHIFT is Present. Performed By: #### L 100.0100, L500.2500 #### [facility] [address] [place], [address] Lymphocytes/100 WBC (Bld) 14.5 % Low 19-41 [facility] Comment on above: Performed By: #### L 100.0100, L500.2500 #### [facility] [address] [place], [address] MCH (RBC) [Entitic mass] 29.1 pg Normal 27.0-32.0 [facility] Comment on above: Performed By: #### L 100.0100, L500.2500 #### [facility] [address] [place], [address] MCHC (RBC) [Mass/Vol] 33.1 g/dL Normal 32-36 [facility] Comment on above: Performed By: #### L 100.0100, L500.2500 #### [facility] [address] [place], [address] MCV (RBC) [Entitic vol] 87.9 fL Normal 81-[address] [facility] Comment on above: Performed By: #### L 100.0100, L500.2500 #### [facility] [address] [place], [address] Monocytes/100 WBC (Bld) 4.6 % Normal 0-10 [facility] Comment on above: Performed By: #### L 100.0100, L500.2500 #### [facility] [address] [place], [address] Neutrophils/100 WBC (Bld) 80.0 % High 47-70 [facility] Comment on above: Performed By: #### L 100.0100, L500.2500 #### [facility] [address] [place], [address] Nucleated RBC (Bld) [#/Vol] 0 10*3/uL Normal 0-5 [facility] Comment on above: Performed By: #### L 100.0100, L500.2500 #### [facility] [address] [place], [address] Platelet mean volume (Bld) [Entitic vol] 10.5 fL Normal 6.2-12.0 [facility] Comment on above: Performed By: #### L 100.0100, L500.2500 #### [facility] [address] [place], [address] Platelets (Bld) [#/Vol] 256 10*3/uL Normal 150-450 [facility] Comment on above: Performed By: #### L 100.0100, L500.2500 #### [facility] [address] [place], [address] RBC (Bld) [#/Vol] 5.36 10*6/uL Normal 4.2-5.4 [facility] Comment on above: Performed By: #### L 100.0100, L500.2500 #### [facility] [address] [place], [address] RDW SD 43.2 fl Normal 35.1-43.9 [facility] Comment on above: Performed By: #### L 100.0100, L500.2500 #### [facility] [address] [place], [address] WBC (Bld) [#/Vol] 7.2 10*3/uL Normal 4.4-11.0 [facility] Comment on above: Performed By: #### L 100.0100, L500.2500 #### [facility] [address] [place], [address] Carbon dioxide, total [Moles /volume] in Central venous bloodOrdered By: Javon Matthew on 12-23-2024 CO2 [Moles/Vol] 27.8 mmol/L 21.0-32.0 [facility] Chest PA and Lateralon 12-23 Chest PA and Lateral [facility] Imaging Services [address] [place] [address] Chest PA and Lateral MR#: [id number] Acct: [id number] Name: CHRISTY QUEZADA Rep #: [id number] : 1945 F 79 From: Jermaine Kennedy MD PCP: DANNY Osorio Status: REG ER Study: Chest PA and Lateral Date of Exam: 12/23/24 Exam# [id number] Ordering Dr: Javon Matthew DO PROCEDURE: CHEST PA AND LATERAL 12/23/2024 REASON FOR EXAM: HYPERTENSION TECHNIQUE: Procedure Code: RADCXR Modality: DX Procedure: CHEST PA AND LATERAL FINDINGS: The heart is normal in size. The lungs are clear. Lungs are hyperaerated. No acute osseous abnormalities. RAD/Chest PA and Lateral IMPRESSION: Hyperaerated lungs which may reflect COPD. Reading Location: [address] CC: DANNY Reid; Dr. Javon Matthew DO Primer Press Operator: Signed Normal [facility] Chloride assayOrdered By: Aly Matthew on 12-23-2024 Chloride [Moles/Vol] 102 mmol/L 98-108 [facility] Electrocardiogram reportOrde red By: David Velazquez on 12-23-2024 EKG study [facility] Cardiovascular Services [address] [place] [address] 12 Lead EKG 12/23/24 1733 MR#: [id number] Acct: [id number] Name: CHRISTY QUEZADA Rep #:[id number] : 1945 79 From: David Velazquez MD Attending Dr: Status: DEP E R Ordering Dr: Javon Matthew DO Date: 1 Location: ED Sex: F C Admitted: Test Reason : CP Blood Pressure : */* mmHG Vent. Rate : 74 BPM Atrial Rate : 74 BPM P-R Int : 170 ms QRS Dur : 86 ms QT Int : 418 ms P-R-T Axes : 64 17 52 degrees QTcB Int : 463 ms Normal sinus rhythm Normal ECG Confirmed by DAVID VELAZQUEZ MD ([id number]), editor continuity and script OSEAS FERRIS ([id number]) on 12/24/2024 9:53:48 AM Referred By: Confirmed By: DAVID VELAZQUEZ MD 12/24/24 0953 Date _ David Velazquez MD CC: DANNY Reid; Dr. Javon Matthew DO ~ Signed [facility] Other Emergency Department Summary on 12-23-2024 Emergency Department Summary [facility] Medical Records Department [address] [place] [address] Emergency Department Summary 12/23/24 MR#: [id number] Acct: [id number] Name: CHRISTY QUEZADA Rep #: [id number] : 1945 79 From: Javon Matthew DO PCP: ADNNY Osorio Status:DEP ER Location: ED HPI History of Present Illness Chief Complaint: Hypertension Informant: patient Onset/Context/Timing Onset: Days Context: Gradual Onset Timing: Waxes and wanes Worsened by: Stress Relieved by: Nothing Narrative Narrative: Patient presents with elevated blood pressures that have been getting worse over the past couple days. Patient states they are gradually getting worse. Patient states she is under stress at work which is causing her blood pressure become elevated. Patient states that her blood pressures today were 205/99, 192/105, and 193/92 just prior to coming to the emergency department. Patient denies any chest pain or shortness of breath. Patient does admit to some pain in her back. Patient denies any fevers or chills. Patient denies any nausea or vomiting. Patient denies any headaches. Patient denies any visual changes. [facility] Medical History (Updated 12/23/24 @ 19:[address] Javon Matthew, DO) Anxiety Hypothyroidism Former smoker Asthma Dementia Home Medications ???Medication ???Instructions ???Recorded ???Last Taken ???Type albuterol sulfate 90 mcg/actuation 2 puff inhalation Q4H PRN wheezi ng 11/23/22 Unknown History aerosol inhaler budesonide-formotero l HFA 80 2 puff inhalation DAILY asthma Unknown History mcg-4.5 mcg/actuation aerosol inhaler (Symbicort) cholecalciferol (vitamin D3) 50 2,000 unit PO DAILY 11/23/22 Unkno wn History mcg (2,000 unit) capsule pjrelodk-who-zsqbx ac 400 1 tab PO DAILY 11/23/22 Unknown Hi story mcg-calcium carb 500 mg-vit K1 20 mcg tablet (Women's 50 Plus Daily Formula) pravastatin 40 mg tablet 40 mg PO DAILY 11/23/22 Unknown Hi story prednisone 50 mg tablet 50 mg PO DAILY #5 tabs 11/23/22 Un known Rx amlodipine 5 mg tablet 5 mg PO DAILY #7 tabs 12/23/24 Unk nown Rx Allergy/AdvReac Type Severity Reaction Status Date / Time No Known Allergies Allergy Verified 12/23/24 16:31 Surgical History H/O neck surgery Social History Smoking Status: Former smoker ROS ROS ED Constitutional Constitutional ED: Denies chills or fever(s) Eyes Eyes: Denies blurry vision or change in vision ENT ENT ED: Denies rhinorrhea or sore throat Cardiovascular Cardiovascular: Denies chest pain or palpitations Respiratory/Chest Respiratory/Chest: Denies cough or dyspnea Gastrointestinal Gastrointestinal: Denies nausea or vomiting Genitourinary Genitourinary ED: Denies dysuria or hematuria Musculoskeletal Musculoskeletal: Reports back pain; Denies neck pain Integumentary Denies abscess or rash Neurologic Neurologic: Denies headache(s) or weakness Allergic/Immunologic Allergic/Immunologic ED: Denies mouth swelling or urticaria EXAM Physical Exam Const Vital Signs: 12/23/24 16:31 12/23/24 17:41 12/23/24 18:46 Temperature 97.5 F L Temperature Source Temporal Pulse Rate 92 70 Respiratory Rate 21 H 16 Respiratory Effort Normal Non-Labored Respiratory Pattern Normal Blood Pressure 161/96 H 140/84 H Blood Pressure Mean 117 102 Pulse Ox 100 98 Oxygen Delivery Method Room Air Room Air Positive well nourished and well developed General Appearance ED: well developed and NAD HEENT Reports moist mucous membranes Neck supple and no JVD Resp normal respiratory effort and clear to auscultation bilaterally Cardio regular rate and regular rhythm GI non-tender and non-distended Palpation: soft Extremity normal to inspection General Extremety ED: Negative for edema or tenderness General Extremity: Negative for edema Neuro oriented x3, CN's II-XII intact bilaterally and no sensory deficits noted Sensorium / Orientation: alert Motor Exam: strength 5/5 throughout Psych mental status grossly normal MDM MDM MDM Narrative Medical decision making narrative: Differential diagnosis includes but is not limited to cardiac dysrhythmia, cardiac ischemia, hypertensive urgency, hypertensive emergency, electrolyte abnormality, and anxiety. EKG will be obtained to assess for cardiac dysrhythmia and cardiac ischemia. Chest x-ray will be obtained to assess for pneumonia, bronchitis, and widened mediastinum. CBC will be obtained to assess for leukocytosis and anemia. Basic metabolic profile will be obtained to assess for electrolyte abnormality and renal function. Lab Data Attestation: I reviewed the patient's lab (more content not included)... Normal [facility] Eosinophil percentageOrdered By: Javon Matthew on 12-23-2024 Eosinophils/100 WBC (Bld) 0.3 % 0-5 [facility] Erythrocyte distribution wid th ratioOrdered By: Javon Matthew on 12-23-2024 Erythrocyte distribution width (RBC) [Ratio] 13.2 % 11.6-14.6 [facility] Erythrocyte distribution wid th standard deviationOrdered By: Javon Matthew on 12-23-2024 Erythrocyte distribution width (RBC) [Ratio] 43.2 fl 35.1-43.9 [facility] Glomerular filtration rate ( GFR) estimation/1.73 sq m using serum, plasma, or whole bOrdered By: Javon Matthew on 12-23-2024 GFR/1.73 sq M.predicted among non-blacks MDRD (S/P/Bld) [Vol rate/Area] 92 mL/min/{1.73_m2} >60 [facility] Comment on above: mL/min/1.73m2 CKD-EP I Creatinine Equation (2020) Hematocrit Auto (Bld) [Volum e fraction]Ordered By: Javno Matthew on 12-23-2024 Hematocrit (Bld) [Volume fraction] 47.1 % High 37-47 [facility] Hemoglobin measurementOrdere d By: Javon Matthew on 12-23-2024 Hemoglobin (Bld) [Mass/Vol] 15.6 g/dL High 12.0-15.0 [facility] Immature granulocytes/100 WB C Auto (Bld)Ordered By: Javon Matthew on 12-23-2024 Immature granulocytes/100 WBC (Bld) 0.300 % 0.0-0.9 [facility] Comment on above: IG% - Immature Granu locytes (promyelocytes, myelocytes and metamyelocytes) > 1% indicates that a LEFT SHIFT is Present. L501.4021on 12-23-2024 Trop T High Sen 7 ng/L Normal <=14 [facility] Comment on above: Performed By: #### L 501.4021 #### [facility] [address] [place], [address] MCV (mean corpuscular volume ) determinationOrdered By: Javon Matthew on 12-23-2024 MCV (RBC) [Entitic vol] 87.9 fL 81-[address] [facility] Mean corpuscular hemoglobin (MCH) determinationOrdered By: Javon Matthew on 12-23-2024 MCH (RBC) [Entitic mass] 29.1 pg 27.0-32.0 [facility] Mean corpuscular hemoglobin concentration (MCHC) determinationOrdered By: Javon Matthew on 12-23-2024 MCHC (RBC) [Mass/Vol] 33.1 g/dL 32-36 [facility] Mean platelet volume determi nationOrdered By: Javon Matthew on 12-23-2024 Platelet mean volume (Bld) [Entitic vol] 10.5 fL 6.2-12.0 [facility] Monocyte percentageOrdered B y: Javon Matthew on 12-23-2024 Monocytes/100 WBC (Bld) 4.6 % 0-[address] [facility] Neutrophil percentageOrdered By: Javon Matthew on 12-23-2024 Neutrophils/100 WBC (Bld) 80.0 % High 47-70 [facility] Nucleated red blood cell per centageOrdered By: Javon Matthew on 12-23-2024 Nucleated RBC/100 WBC (Bld) [Ratio] 0 % 0-5 [facility] Platelet countOrdered By: Aly Matthew on 12-23-2024 Platelets (Bld) [#/Vol] 256 10*3/uL 150-450 [facility] Potassium measurement (mass/ volume)Ordered By: Javon Matthew on 12-23-2024 Potassium (Unsp spec) [Mass/Vol] 3.8 mmol/L 3.3-5.1 [facility] RBC Auto (Bld) [#/Vol]Ordere d By: Javon Matthew on 12-23-2024 RBC (Bld) [#/Vol] 5.36 10*6/uL 4.2-5.4 [facility] Serum creatinine measurement (mass/volume)Ordered By: Javon Matthew on 12-23-2024 Creatinine [Mass/Vol] 0.56 mg/dL Low 0.70-1.20 [facility] Serum glucose measurement (m ass/volume)Ordered By: Javon Matthew on 12-23-2024 Glucose [Mass/Vol] 103 mg/dL High 70-99 [facility] Serum or plasma calcium ulysses urement (mass/volume)Ordered By: Javon Matthew on 12-23-2024 Calcium [Mass/Vol] 9.5 mg/dL 7.6-11.0 [facility] Serum or plasma urea nitroge n measurement (mass/volume)Ordered By: Javon Matthew on 12-23-2024 Urea nitrogen [Mass/Vol] 17 mg/dL 4-19 [facility] Sodium levelOrdered By: Javon Matthew on 12-23-2024 Sodium [Moles/Vol] 141 mmol/L 133-145 [facility] Troponin T.cardiac [Mass/vol ume] in Serum or Plasma by High sensitivity methodOrdered By: Javon Matthew on 12-23-2024 Troponin T.cardiac High sensitivity method [Mass/Vol] 7 ng/L <14 [facility] White blood cell (WBC) count Ordered By: Javon Matthew on 12-23-2024 WBC (Bld) [#/Vol] 7.2 10*3/uL 4.4-11.0 [facility] SCRN MAMM (CAD)W/SMITHA BILATo n 04-14-2024 SCRN MAMM (CAD)W/SMITHA BILAT [facility] Imaging Services [address] [place] [address] SCRN MAMM (CAD)W/SMITHA BILAT MR#: [id number] Acct: [id number] Name: CHRISTY QUEZADA Rep #: [id number] : 1945 F 79 From: Carley Yost MD PCP: DANNY Osorio Status: [facility] Study: SCRN MAMM (CAD)W/SMITHA BILAT Date of Exam: 07/03 Exam# [id number] Ordering Dr: Lin Reid ADDENDUM by Dr. Carley Yost MD on 05/01/24 at 0939 The prior examination dated 04/13/2022 is now available. The images are reviewed and the BI-RADS remains 1, negative. The patient should return to annual screening mammogram. Reading Location: [facility] 05/01/24 0939 Date cc: DANNY Reid * Signed PROCEDURE: SCRN MAMM (CAD)W/SMITHA BILAT REASON FOR EXAM: F, Age 79 y/o, presents for annual screening mammography. TECHNIQUE: Bilateral screening digital breast tomosynthesis with 2D and 3D images. Computer aided detection. COMPARISON: No priors available. FINDINGS: There are scattered areas of fibroglandular density. No suspicious masses, areas of developing architectural distortion, or suspicious calcifications. BI/SCRN MAMM (CAD)W/SMITHA BILAT IMPRESSION: There is no mammographic evidence of malignancy. BI-RADS 1: NEGATIVE. RECOMMEND ANNUAL MAMMOGRAPHIC SCREENING. Follow-up code: Routine Follow-up The patient will be notified of the results by letter. Reading Location: [facility] CC: DANNY Reid [employer] Operator: Signed Normal [facility] CBC W/Diff, Automatedon 11-0 Absolute Lymph 1.45 X10 3/uL Normal 0.83-4.51 [facility] Comment on above: Performed By: #### L 500.4050, L506.1000, L500.4100, L100.0100 #### [facility] [address] [place], [address] Absolute Neut 4.3 X10 3/uL Normal 2.0-7.7 [facility] Comment on above: Performed By: #### L 500.4050, L506.1000, L500.4100, L100.0100 #### [facility] [address] [place], [address] Basophils/100 WBC (Bld) 0.8 % Normal 0-[address] [facility] Comment on above: Performed By: #### L 500.4050, L506.1000, L500.4100, L100.0100 #### [facility] [address] [place], [address] Eosinophils/100 WBC (Bld) 2.2 % Normal 0-5 [facility] Comment on above: Performed By: #### L 500.4050, L506.1000, L500.4100, L100.0100 #### [facility] [address] [place], [address] Erythrocyte distribution width (RBC) [Ratio] 13.6 % Normal 11.6-14.6 [facility] Comment on above: Performed By: #### L 500.4050, L506.1000, L500.4100, L100.0100 #### [facility] [address] [place], [address] Hematocrit (Bld) [Volume fraction] 49.2 % High 37-47 [facility] Comment on above: Performed By: #### L 500.4050, L506.1000, L500.4100, L100.0100 #### [facility] [address] [place], [address] Hemoglobin (Bld) [Mass/Vol] 15.6 g/dL High 12.0-15.0 [facility] Comment on above: Performed By: #### L 500.4050, L506.1000, L500.4100, L100.0100 #### [facility] [address] [place], [address] IG% 0.300 Normal 0.0-0.9 [facility] Comment on above: Result Comment: IG% - Immature Granulocytes (promyelocytes, myelocytes and metamyelocytes) > 1% indicates that a LEFT SHIFT is Present. Performed By: #### L 500.4050, L506.1000, L500.4100, L100.0100 #### [facility] [address] [place], [address] Lymphocytes/100 WBC (Bld) 22.8 % Normal 19-41 [facility] Comment on above: Performed By: #### L 500.4050, L506.1000, L500.4100, L100.0100 #### [facility] [address] [place], [address] MCH (RBC) [Entitic mass] 28.5 pg Normal 27.0-32.0 [facility] Comment on above: Performed By: #### L 500.4050, L506.1000, L500.4100, L100.0100 #### [facility] [address] [place], [address] MCHC (RBC) [Mass/Vol] 31.7 g/dL Low 32-36 [facility] Comment on above: Performed By: #### L 500.4050, L506.1000, L500.4100, L100.0100 #### [facility] [address] [place], [address] MCV (RBC) [Entitic vol] 89.9 fL Normal 81-99 [facility] Comment on above: Performed By: #### L 500.4050, L506.1000, L500.4100, L100.0100 #### [facility] [address] [place], [address] Monocytes/100 WBC (Bld) 7.2 % Normal 0-[address] [facility] Comment on above: Performed By: #### L 500.4050, L506.1000, L500.4100, L100.0100 #### [facility] [address] [place], [address] Neutrophils/100 WBC (Bld) 66.7 % Normal 47-70 [facility] Comment on above: Performed By: #### L 500.4050, L506.1000, L500.4100, L100.0100 #### [facility] [address] [place], [address] Nucleated RBC (Bld) [#/Vol] 0 10*3/uL Normal 0-5 [facility] Comment on above: Performed By: #### L 500.4050, L506.1000, L500.4100, L100.0100 #### [facility] [address] [place], [address] Platelet mean volume (Bld) [Entitic vol] 10.9 fL Normal 6.2-12.0 [facility] Comment on above: Performed By: #### L 500.4050, L506.1000, L500.4100, L100.0100 #### [facility] [address] [place], [address] Platelets (Bld) [#/Vol] 227 10*3/uL Normal 150-450 [facility] Comment on above: Performed By: #### L 500.4050, L506.1000, L500.4100, L100.0100 #### [facility] [address] [place], [address] RBC (Bld) [#/Vol] 5.47 10*6/uL High 4.2-5.4 [facility] Comment on above: Performed By: #### L 500.4050, L506.1000, L500.4100, L100.0100 #### [facility] [address] [place], [address] RDW SD 45.0 fl High 35.1-43.9 [facility] Comment on above: Performed By: #### L 500.4050, L506.1000, L500.4100, L100.0100 #### [facility] [address] [place], [address] WBC (Bld) [#/Vol] 6.4 10*3/uL Normal 4.4-11.0 [facility] Comment on above: Performed By: #### L 500.4050, L506.1000, L500.4100, L100.0100 #### [facility] [address] [place], [address] Comprehensive Metabolic Prof ilon 01-10-2024 Albumin [Mass/Vol] 3.8 g/dL Normal 3.2-5.0 [facility] Comment on above: Performed By: #### L 500.4050, L506.1000, L500.4100, L100.0100 #### [facility] [address] [place], [address] Albumin/Globulin [Mass ratio] 1.0 {ratio} Normal 0.9-2.4 [facility] Comment on above: Performed By: #### L 500.4050, L506.1000, L500.4100, L100.0100 #### [facility] [address] [place], [address] ALK P 81 U/L Normal 45-117 [facility] Comment on above: Performed By: #### L 500.4050, L506.1000, L500.4100, L100.0100 #### [facility] [address] [place], [address] ALT [Catalytic activity/Vol] 25 U/L Normal 13-56 [facility] Comment on above: Performed By: #### L 500.4050, L506.1000, L500.4100, L100.0100 #### [facility] [address] [place], [address] AST [Catalytic activity/Vol] 26 U/L Normal 15-37 [facility] Comment on above: Performed By: #### L 500.4050, L506.1000, L500.4100, L100.0100 #### [facility] [address] [place], [address] Bilirubin [Mass/Vol] 1.90 mg/dL High 0.20-1.00 [facility] Comment on above: Result Comment: For patients on eltrombopag therapy, use of Dimension [place] TBIL is not recommended. Performed By: #### L 500.4050, L506.1000, L500.4100, L100.0100 #### [facility] [address] [place], [address] BUN/CRE 19.7 RATIO Normal 10-20 [facility] Comment on above: Performed By: #### L 500.4050, L506.1000, L500.4100, L100.0100 #### [facility] [address] [place], [address] CA,Total 9.3 mg/dL Normal 8.5-10.1 [facility] Comment on above: Performed By: #### L 500.4050, L506.1000, L500.4100, L100.0100 #### [facility] [address] [place], [address] Chloride [Moles/Vol] 106 mmol/L Normal 98-107 [facility] Comment on above: Performed By: #### L 500.4050, L506.1000, L500.4100, L100.0100 #### [facility] [address] [place], [address] CO2 [Moles/Vol] 31.0 mmol/L Normal 21.0-32.0 [facility] Comment on above: Performed By: #### L 500.4050, L506.1000, L500.4100, L100.0100 #### [facility] [address] [place], [address] Creatinine [Mass/Vol] 0.66 mg/dL Normal 0.55-1.02 [facility] Comment on above: Result Comment: The validity of the calculated GFR GFRAA in patients over 70 years has not been determined. Clinical correlation is essential. Performed By: #### L 500.4050, L506.1000, L500.4100, L100.0100 #### [facility] [address] [place], [address] EST GFR - AA 110 mL/min Normal >60 [facility] Comment on above: Result Comment: Afri can [place] GFR Calc Performed By: #### L 500.4050, L506.1000, L500.4100, L100.0100 #### [facility] [address] [place], [address] GAP 5 Normal 5-15 [facility] Comment on above: Performed By: #### L 500.4050, L506.1000, L500.4100, L100.0100 #### [facility] [address] [place], [address] GFR/1.73 sq M.predicted among non-blacks MDRD (S/P/Bld) [Vol rate/Area] 91 mL/min/{1.73_m2} Normal >60 [facility] Comment on above: Result Comment: Non- GFR Calc Performed By: #### L 500.4050, L506.1000, L500.4100, L100.0100 #### [facility] [address] [place], [address] Globulin (S) [Mass/Vol] 3.8 g/dL Normal 2.2-4.2 [facility] Comment on above: Performed By: #### L 500.4050, L506.1000, L500.4100, L100.0100 #### [facility] [address] [place], [address] Glucose [Mass/Vol] 82 mg/dL Normal 74-106 [facility] Comment on above: Performed By: #### L 500.4050, L506.1000, L500.4100, L100.0100 #### [facility] [address] [place], [address] Potassium [Moles/Vol] 4.0 mmol/L Normal 3.5-5.1 [facility] Comment on above: Performed By: #### L 500.4050, L506.1000, L500.4100, L100.0100 #### [facility] [address] [place], [address] Sodium [Moles/Vol] 142 mmol/L Normal 136-145 [facility] Comment on above: Performed By: #### L 500.4050, L506.1000, L500.4100, L100.0100 #### [facility] [address] [place], [address] T PROT 7.6 g/dL Normal 6.4-8.2 [facility] Comment on above: Performed By: #### L 500.4050, L506.1000, L500.4100, L100.0100 #### [facility] [address] [place], [address] Urea nitrogen [Mass/Vol] 13 mg/dL Normal 7-18 [facility] Comment on above: Performed By: #### L 500.4050, L506.1000, L500.4100, L100.0100 #### [facility] [address] [place], [address] Lipid Profileon 01-10-2024 Cholesterol [Mass/Vol] 219 mg/dL High 200 [facility] Comment on above: Result Comment: <200 mg/dL Desirable 200-240 mg/dL Borderline >240 mg/dL High Risk Performed By: #### L 500.4050, L506.1000, L500.4100, L100.0100 #### [facility] [address] [place], [address] Cholesterol in HDL [Mass/Vol] 99 mg/dL Normal [facility] Comment on above: Result Comment: The drugs N-Acetylcysteine and Metamizole may falsely depress this assay. Reference Range HDL <40 mg/dL Low HDL Cholesterol HDL >or= 60 mg/dL High HDL Cholesterol Performed By: #### L 500.4050, L506.1000, L500.4100, L100.0100 #### [facility] [address] [place], [address] Cholesterol in LDL [Mass/Vol] 104 mg/dL Normal 0-130 [facility] Comment on above: Performed By: #### L 500.4050, L506.1000, L500.4100, L100.0100 #### [facility] [address] [place], [address] Cholesterol in VLDL [Mass/Vol] 16 mg/dL Normal 5-40 [facility] Comment on above: Performed By: #### L 500.4050, L506.1000, L500.4100, L100.0100 #### [facility] [address] [place], [address] Triglyceride [Mass/Vol] 80 mg/dL Normal [facility] Comment on above: Result Comment: The drugs N-Acetylcysteine and Metamizole may falsely depress this assay. Serum Triglycerides Reference Interval Normal <150 mg/dL Borderline high 150 - 199 mg/dL High 200 - 499 mg/dL Very High > or = 500 mg/dL Performed By: #### L 500.4050, L506.1000, L500.4100, L100.0100 #### [facility] [address] [place], [address] Vitamin D,25 Hydroxyon 01-09 Vitamin D 25-OH 38.6 ng/mL Normal [facility] Comment on above: Result Comment: Diamond min D 25(OH) Status Range Deficiency <20 ng/mL (50nmol/L) Insufficiency 20 - 30 ng/mL (50 - 75 nmol/L) Sufficiency 30 - 100 ng/mL (75 - 250 nmol/L) Toxicity >100 ng/mL (>250 nmol/L) Performed By: #### L 500.4050, L506.1000, L500.4100, L100.0100 #### [facility] [address] [place], [address] Absolute lymphocyte countOrd ered By: ED PROVIDER on 11-23-2022 Lymphocytes Auto (Unsp spec) [#/Vol] 1.51 10*3/uL 0.83-4.51 [facility] Basophil percentageOrdered B y: ED PROVIDER on 11-23-2022 Basophils/100 WBC (Bld) 0.6 % 0-1 [facility] Chloride [Moles/Vol] 105 mmol/L 98-107 [facility] Eosinophils/100 WBC (Bld) 2.8 % 0-5 [facility] Glucose [Mass/Vol] 126 mg/dL 74-106 [facility] Comment on above: Fasting Glucose resu lt greater than or equal to 126 mg/dL suggests DIABETES MELLITUS per A.D.A. criteria. Neutrophils (Bld) [#/Vol] 5.8 10*3/uL 2.0-7.7 [facility] Neutrophils/100 WBC (Bld) 72.8 % 47-70 [facility] Potassium [Moles/Vol] 3.5 mmol/L 3.5-5.1 [facility] Sodium [Moles/Vol] 140 mmol/L 136-145 [facility] WBC (Bld) [#/Vol] 7.9 10*3/uL 4.4-11.0 [facility] Blood erythrocytes count (nu mber/volume)Ordered By: ED PROVIDER on 11-23-2022 RBC (Bld) [#/Vol] 5.17 10*6/uL 4.2-5.4 [facility] Blood hemoglobin measurement (mass/volume)Ordered By: ED PROVIDER on 11-23-2022 Hemoglobin (Bld) [Mass/Vol] 14.9 g/dL 12.0-15.0 [facility] Blood lymphocytes/100 leukoc ytesOrdered By: ED PROVIDER on 11-23-2022 Lymphocytes/100 WBC (Bld) 19.1 % 19-41 [facility] Blood monocytes/100 leukocyt esOrdered By: ED PROVIDER on 11-23-2022 Monocytes/100 WBC (Bld) 4.4 % 0-[address] [facility] Blood platelet mean volumeOr dered By: ED PROVIDER on 11-23-2022 Platelet mean volume (Bld) [Entitic vol] 10.5 fL 6.2-12.0 [facility] COVID-19 virus antigen assay Ordered By: Jacob Mar on 11-23-2022 SARS-CoV-2 (COVID-19) Ag IA.rapid Ql (Resp) [facility] Determination of erythrocyte mean corpuscular volume (MCV)Ordered By: ED PROVIDER on 11-23-2022 MCV (RBC) [Entitic vol] 89.9 fL 81-[address] [facility] Hematocrit Auto (Bld) [Volum e fraction]Ordered By: ED PROVIDER on 11-23-2022 Hematocrit (Bld) [Volume fraction] 46.5 % 37-47 [facility] - Chemistry and C hemistry - challengeOrdered By: ED PROVIDER on 11-23-2022 CO2 [Moles/Vol] 31.0 mmol/L 21.0-32.0 [facility] Urea nitrogen/Creatinine [Mass ratio] 23.0 mg/mg 10-20 [facility] - Hematology and Cell countsOrdered By: ED PROVIDER on 11-23-2022 Erythrocyte distribution width (RBC) [Entitic vol] 43.5 fL 35.1-43.9 [facility] Erythrocyte distribution width (RBC) [Ratio] 13.2 % 11.6-14.6 [facility] Immature granulocytes/100 WBC (Bld) 0.300 % 0.0-0.9 [facility] Comment on above: IG% - Immature Granu locytes (promyelocytes, myelocytes and metamyelocytes) > 1% indicates that a LEFT SHIFT is Present. MCH (RBC) [Entitic mass] 28.8 pg 27.0-32.0 [facility] Nucleated RBC/100 W[facility] (Bld) [[facility]] 0 [facility] [Mass/Vol]Or dered By: ED PROVIDER on 11-23-2022 MCHC (RBC) [Mass/Vol] 32.0 g/dL 32-36 [facility] No Panel InformationOrdered By: ED PROVIDER on 11-23-2022 Estimated Creatinine Clearance Calc 37.74 ml/min [facility] Estimated GFR (MDRD) Amer 113 mL/min >60 [facility] Comment on above: GFR Calc Estimated GFR (MDRD) Non-Af Amer 93 mL/min >60 [facility] Comment on above: Non- GFR Calc Platelets bldOrdered By: ED PROVIDER on 11-23-2022 Platelets (Bld) [#/Vol] 208 10*3/uL 150-450 [facility] Serum or plasma calcium ulysses urement (mass/volume)Ordered By: ED PROVIDER on 11-23-2022 Calcium [Mass/Vol] 9.1 mg/dL 8.5-10.1 [facility] Serum or plasma creatinine m easurement (mass/volume)Ordered By: ED PROVIDER on 11-23-2022 Creatinine [Mass/Vol] 0.65 mg/dL 0.55-1.02 [facility] Comment on above: The validity of the calculated GFR & GFRAA in patients over 70 years has not been determined. Clinical correlation is essential. Serum or plasma urea nitroge n measurement (mass/volume)Ordered By: ED PROVIDER on 11-23-2022 Urea nitrogen [Mass/Vol] 15 mg/dL 7-18 [facility] Thin prep Papanicolaou smear with manual screeningOrdered By: ED PROVIDER on 11-23-2022 Thin prep Papanicolaou smear with manual screening 4 5-15 [facility] Provider Note - ED v2on 07-10 Provider Note - ED v2 Provider Note - ED v2: Chart Review: HISTORY OF PRESENTING ILLNESS CHRISTY is a 75 year old Female and was seen by me at 30-Jul-2020 10:43. The historian is the patient. Triage Information: Most recent Vital Sign Value Date PAST MEDICAL HISTORY ATTESTATION: I have reviewed and confirmed nurse's/medic's notes for patient's medications, allergies, and medical, surgical, family and social history ALLERGIES/INTOLERANC ES: No Known Allergies HEALTH HISTORY: Follows with PCP for management of her osteoporosis. No other known health issues. Family history: no pertinent history. Social history: . Retired. OUTPATIENT MEDICATIONS: Home Medications Review Status for Reconciliation: Complete Med Status: Patient Currently Takes Medications Drug Name: Symbicort 80 mcg-4.5 mcg/inh inhalation aerosol Instructions: 2 puff(s) inhaled 2 times a day Drug Name: Albuterol (Eqv-ProAir HFA) 90 mcg/inh inhalation aerosol Instructions: 2 puff(s) inhaled every 6 hours Drug Name: pravastatin 10 mg oral tablet Instructions: 1 tab(s) orally once a day Drug Name: alendronate 5 mg oral tablet Instructions: 1 tab(s) orally once a day Drug Name: naproxen 500 mg oral tablet Instructions: 1 tab(s) orally every 12 hours, As Needed for pain/inflammation. Take with food. SIGNIFICANT EVENTS: Past Medical History Description:Osteopor osis No other known significant events or known past surgical history. RESULTS/VITAL SIGNS VITAL SIGNS: T PRBP SpO2O2(LPM) %FiO2 Method 30-Jul-2020 09:55:[id number] /[id number] 96 MEDICAL DECISION MAKING/ED COURSE MDM/ED COURSE: This note was generated with voice recognition software and may contain errors including spelling, grammar, syntax, and misrecognization of what was dictated CHIEF COMPLAINT L hip pain HISTORY OF PRESENT ILLNESS Pt presents today for evaluation of left hip pain x 6 days. Denies any known injury, but reports that she returned from a 3-day road trip last Saturday - they traveled in a truck that is high above the ground and doesn't have a running board. She reports that to get into the truck, she had to swing her L leg into the truck, then turn and lift the rest of her body in - reports is somewhat difficult, but did not seem bothersome to her hip at the time. Denies any known abrupt injury, and reports she felt okay when she got home on Saturday night/Sat, but she started to have pain in her L hip and low back on Saturday. The pain worsened by Saturday morning, and she started having intermittent spasms in her hip and L buttock on Saturday. She went to see her PCP (Dr. rBown) on Saturday - he felt her symptoms were r/t the recent strain on her hip/low back during the road trip - he advised her to increase Aleve and f/u PRN. She reports she has been doing this, and also tried taking Tylenol, but pain is persisting. Admits has been taking more Aleve and Tylenol than recommended. She denies any worsening in sxs since her PCP visit but states is concerned that she is still having so much discomfort. Pain scale 3/10 at best (when laying on here side) and 10/10 at times when she moves in certain positions. Pain is aching and sharp, like spasms. She denies any radiation of pain; denies any numbness/tingling and denies weakness in extremities. Denies any bowel/bladder dysfunction, rashes, fever/chills, night sweats, weight loss, abdominal c/o, urinary symptoms, headaches, calf pain, respiratory issues, saddle anesthesia, and any other constitutional complaints. She does have a history of osteoporosis - currently takes Alendronate. Denies any history of kidney or liver issues. No prior history of back, hip, or pelvic issues. REVIEW OF SYSTEMS 10 systems reviewed negative with exception of history of present illness listed above PHYSICAL EXAMINATION General: Pleasant, well-nourished elderly female; alert and oriented; appears somewhat uncomfortable with position changes and ambulation, but in no acute distress. Accompanied by her . Neck: Supple. No lymphadenopathy. Respiratory: Respirations easy and unlabored, Breath sounds equal. Lungs are clear to auscultation; no wheezes, rhonchi, or rales. Non-dyspneic. No pain with deep breaths. Cardiovascular: Normal rate, Regular rhythm. No m/r/g. Gastrointestinal: Soft, non-tender, non-distended. Bowel sounds normoactive. No palpable masses or organomegaly. No CVA tenderness. Musculoskeletal: Mildly antalgic gait, and appears uncomfortable with position changes. No tenderness to palpation over thoracic or lumbar spine, but describes pain inside over L SI joint and hip. Neg SLRs to 90 degrees bilat. 5/5 motor strength LE's (proximally and distally), n/v intact (proximally and distally). No saddle anesthesia. Patellar DTRs 2+ bilat. Lumbar flexion limited to ~60 degrees d/t pain in L SI/hip; has nearly full ext (more content not included)... [facility] XR Spine Cervical 4 or 5 Vie wson 07-10-2018 XR Spine Cervical 4 or 5 Views Exam Date/Time: 07/10/2018 11:40 EDT Reason for Exam: left shoulder pain Report STUDY: XR Spine Cervical 4 or 5 Views; 07/10/2018 11:40 am INDICATION: left shoulder pain. COMPARISON: None. ACCESSION NUMBER(S): [id number] ORDERING CLINICIAN: Eliazar Brown TECHNIQUE: Five views of the cervical spine including AP, lateral, lateral swimmer's view and bilateral oblique views were obtained. FINDINGS: There is complete fusion across the C6-7 disc space, which may be postoperative or congenital in nature.There is no evidence of acute fracture identified. Mild disc space narrowing and small marginal osteophytes are present at the C4-5 and C5-6 level. Moderate facet degenerative changes are seen throughout the cervical spine. No prevertebral soft tissue swelling is present. No gross osseous neural foraminal narrowing is seen bilaterally. IMPRESSION: 1. No evidence of acute fracture. 2. Degenerative changes, as above. FINAL REPORT Dictated: 07/10/2018 12:01 pm Beto Cameron MD Signed (Electronic Signature): 07/10/2018 12:01 pm Signed by: Beto Cameron MD Technologist: R [facility] XR Hip 2-3 Views Righton XR Hip 2-3 Views Right Exam Date/Time: 07/04/2018 10:58 EDT Reason for Exam: right hip pain Report STUDY: XR Hip 2-3 Views Right; 07/04/2018 10:58 am INDICATION: right hip pain. COMPARISON: None. ACCESSION NUMBER(S): [id number] ORDERING CLINICIAN: Eliazar Brown TECHNIQUE: AP and lateral views of the right hip were obtained. FINDINGS: There is no acute fracture or dislocation identified. Mild hypertrophic degenerative changes are seen in the right sacroiliac joint. Minimal marginal osteophyte formation is seen in the right hip. IMPRESSION: 1. No evidence of acute fracture or dislocation. 2. Degenerative changes, as described above. FINAL REPORT Dictated: 07/04/2018 12:32 pm Beto Cameron MD Signed (Electronic Signature): 07/04/2018 12:32 pm Signed by: Beto Cameron MD Technologist: MADHAVI [facility] XR Shoulder Complete Lefton 07-04-2018 XR Shoulder Complete Left Exam Date/Time: 07/04/2018 10:58 EDT Reason for Exam: left shoulder pain Report STUDY: XR Shoulder Complete Left; 07/04/2018 10:58 am INDICATION: left shoulder pain. COMPARISON: None. ACCESSION NUMBER(S): [id number] ORDERING CLINICIAN: Eliazar Brown TECHNIQUE: 5 views of the shoulder including AP, AP internal rotation , Grashey, axillary and scapular Y- views were obtained. FINDINGS: There is no radiographic evidence of acute fracture or dislocation identified. The joint spaces are well preserved without significant degenerative changes. IMPRESSION: 1. No evidence of acute fracture or dislocation. FINAL REPORT Dictated: 07/04/2018 12:31 pm Beto Cameron MD Signed (Electronic Signature): 07/04/2018 12:31 pm Signed by: Beto Cameron MD Technologist: MADHAVI [facility] Vital Signs Date Time Vital Sign Value Performing Clinician Carolynn de la rosa 12-23-2024 19:55-0400 Body temperature 97.2 [degF] Lin Reid [employer] Work Phone: [facility] 12-23-2024 19:55-0400 Diastolic blood pressure 70 mm[Hg] Lin Reid [employer] Work Phone: [facility] 12-23-2024 19:55-0400 Heart rate 78 /min Lin Reid [employer] Work Phone: [facility] 12-23-2024 19:55-0400 Respiratory rate 18 /min Lin Reid [employer] Work Phone: [facility] 12-23-2024 19:55-0400 SaO2% (BldA) [Mass fraction] 98 % Lin Reid [employer] Work Phone: [facility] 12-23-2024 19:55-0400 Systolic blood pressure 183 mm[Hg] Lin Reid [employer] Work Phone: [facility] 12-23-2024 16:31-0400 Body height 160.02 cm Lin Reid [employer] Work Phone: [facility] 12-23-2024 16:31-0400 Body mass index (BMI) [Ratio] 24.8 kg/m2 Lin Reid [employer] Work Phone: [facility] 12-23-2024 16:31-0400 Body weight 63.7 kg Lin Reid [employer] Work Phone: [facility] 11-23-2022 22:18-0400 Diastolic blood pressure 90 mm[Hg] [facility] 11-23-2022 22:18-0400 Heart rate 82 /min [facility] 11-23-2022 22:18-0400 Respiratory rate 20 /min [facility] 11-23-2022 22:18-0400 SaO2% (BldA) [Mass fraction] 93 % [facility] 11-23-2022 22:18-0400 Systolic blood pressure 160 mm[Hg] [facility] 11-23-2022 19:16-0400 Body height 160.02 cm [facility] 11-23-2022 19:16-0400 Body mass index (BMI) [Ratio] 25.8 kg/m2 [facility] 11-23-2022 19:16-0400 Body temperature 97.5 [degF] [facility] 11-23-2022 19:16-0400 Body weight 66.22 kg [facility] Encounters Encounter Date Encounter Type Care Provider Facility Start: 12-23-2024 End: 12-23-2024 Emergency department patient visit Lin Franklin Facility:[facility] Start: 04-14-2024 End: 04-14-2024 ambulatory Pickens Franklin Facility:[facility] Start: 01-10-2024 End: 01-10-2024 ambulatory Lin Reid Facility:[facility] Start: 11-23-2022 End: 11-23-2022 Emergency department patient visit [facility]Emergency Department Work Phone: Start: 04-13-2022 End: 04-13-2022 ambulatory [facility] Work Phone: Start: 04-13-2022 End: 04-13-2022 Patient encounter procedure [facility]-Outpatient Breast Imaging Start: 07-30-2020 End: 07-30-2020 Emergency department patient visit Barb Wise [facility] Start: 07-10-2018 End: 07-11-2018 Patient encounter procedure Eliazar Brown Facility:[facility] Start: 07-10-2018 Patient encounter procedure Facility:[id number] Start: 07-04-2018 End: 07-04-2018 Patient encounter procedure Bud Quinn Facility:[facility] Start: 07-04-2018 End: 07-05-2018 Patient encounter procedure Eliazar Brown Facility:[facility] Start: 07-04-2018 Patient encounter procedure Facility:[id number] Procedures Date Procedure Procedure Detail Performing Clinician Start: 12-23-2024 Radiologic exam ches t 2 views Lin Reid [employer] Work Phone: Start: 12-23-2024 Estimated creatinine clearance Lin Reid [employer] Work Phone: Start: 11-23-2022 Viral antigen assay Start: 04-13-2022 Screening mammography Plan of Treatment Date Care Activity Detail Author Start: 12-23-2024 [facility] Start: 12-23-2024 [facility] Start: 11-23-2022 [facility] Patient Education [facility] Work Phone: Patient referral [facility] Work Phone: Payers Date Payer Category Payer Private Health Insurance 101 [id number] 2024 Self-pay [id number] 2018 Private Health Insurance 2008 Unknown 1945 Unknown [id number] 2.16.84 [id number] 1945 Unknown [id number] 2.16.84 [id number] 1945 Unknown [id number] 2.16.84 [id number] 1945 Unknown [id number] 2.16. [id number] 1945 Unknown [id number] 2.16. [id number] Private Health Insurance [facility] Unknown [id number] 2.16.8 [id number] Unknown [id number] 2.16.8 [id number] Unknown [id number] 2.16.8 [id number] Social History Date Type Detail Facility [facility] Start: 11-23-2022 Tobacco smokin g consumption unknown [facility] Start: 1945 Sex Assigned At Female W [facility] Start: 12-23-2024 Tobacco smoking status NHIS Ex-smoker (finding) [facility] Sex Female [facility] Mental Status Date Assessment Result Facility 12-23-2024 Cognitive function Level Of Consciousness Awake [facility] Work Phone: Discharge summary 12-23-2024 Note Date & Type Note Facility 12-23-2024 Discharge summary [facility] Radiology Diagnostic study note 12-23-2024 Note Date & Type Note Facility 12-23-2024 Radiology Diagnostic study note [facility] Imaging Services [address] [place], [place] [address] Chest PA and Lateral MR#: [id number] Acct: [id number] Name: CHRISTY QUEZADA Rep #: [id number] : 1945 F 79 From: Manny Kennedy MD PCP: DANNY Osorio Status: [facility] ER Study:Chest PA and Lateral Date of Exam: 12/23/24 Exam# [id number] Ordering Dr: Javon Matthew DO PROCEDURE: CHEST PA AND LATERAL 12/23/2024 REASON FOR EXAM: HYPERTENSION TECHNIQUE: Procedure Code: RADCXR Modality: DX Procedure: CHEST PA AND LATERAL FINDINGS: The heart is normal in size. The lungs are clear. Lungs are hyperaerated. No acute osseous abnormalities. RAD/Chest PA and Lateral IMPRESSION: Hyperaerated lungs which may reflect COPD. Reading Location: [id number] CC: [employer] Lin Reid; Dr. 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 [facility] Discharge summary 12-23-2024 Note Date & Type Note Facility 12-23-2024 Discharge summary Note Date/Time December 23, 2024 7:56pm [facility] Medical Records Department [address] [place] [id number] Emergency Department Summary 12/23/24 MR#: [id number] Acct: [id number] Name: CHRISTY QUEZADA Rep #:[id number] : 1945 79 From: Javon Monae PCP: DANNY Osorio Status:[facility] ER Location: ED HPI History of Present Illness Chief Complaint: Hypertension Informant: patient Onset/Context/Timing Onset: Days Context: Gradual Onset Timing: Waxes and wanes Worsened by: Stress Relieved by: Nothing Narrative Narrative: Patient presents with elevated blood pressures that have been getting worse overthe past couple days. Patient states they are gradually getting worse. Patientstates she is under stress at work which is causing her blood pressure become elevated. Patient states that her blood pressures today were 205/99, 192/105, and 193/92 just prior to coming to the emergency department. Patient denies anychest pain or shortness of breath. Patient does admit to some pain in her back. Patient denies any fevers or chills. Patient denies any nausea or vomiting. Patient denies any headaches. Patient denies any visual changes. [facility] Medical History (Updated 12/23/24 @ 19:[address] Javon Matthew DO) Anxiety Hypothyroidism Former smoker Asthma Dementia Home Medications ?Medication ?Instructions ?Recorded ?Last Taken ?Type albuterol sulfate 90 mcg/actuation 2 puff inhalation Q 4H PRN wheezing 11/23/22 Unknown History aerosol inhaler budesonide-formoterol HFA 80 2 puff inhalation DAILY a sthma 11/23/22 Unknown History mcg-4.5 mcg/actuation aerosol inhaler (Symbicort) cholecalciferol (vitamin D3) 50 2,000 unit PO DAILY Unknown History mcg (2,000 unit) capsule okicbtzf-wpe-brlfj ac 400 1 tab PO DAILY 11/23/22 Unkn own History mcg-calcium carb 500 mg-vit K1 20 mcg tablet (Women's 50 Plus Daily Formula) pravastatin 40 mg tablet 40 mg PO DAILY 11/23/22 Unkn own History prednisone 50 mg tablet 50 mg PO DAILY #5 tabs 11/23 Unknown Rx amlodipine 5 mg tablet 5 mg PO DAILY #7 tabs Unknown Rx Allergy/AdvReac Type Severity Reaction Status Date / Time No Known Allergies Allergy Verified 12/23/24 16:31 Surgical History H/O neck surgery Social History Smoking Status: Former smoker ROS ROS ED Constitutional Constitutional ED: Denies chills or fever(s) Eyes Eyes: Denies blurry vision or change in vision ENT ENT ED: Denies rhinorrhea or sore throat Cardiovascular Cardiovascular: Denies chest pain or palpitations Respiratory/Chest Respiratory/Chest: Denies cough or dyspnea Gastrointestinal Gastrointestinal: Denies nausea or vomiting Genitourinary Genitourinary ED: Denies dysuria or hematuria Musculoskeletal Musculoskeletal: Reports back pain; Denies neck pain Integumentary Denies abscess or rash Neurologic Neurologic: Denies headache(s) or weakness Allergic/Immunologic Allergic/Immunologic ED: Denies mouth swelling or urticaria EXAM Physical Exam Const Vital Signs: 12/23/24 16:31 12/23/24 17:41 12/23/24 18:46 Temperature 97.5 F L Temperature Source Temporal Pulse Rate 92 70 Respiratory Rate 21 H 16 Respiratory Effort Normal Non-Labored Respiratory Pattern Normal Blood Pressure 161/96 H 140/84 H Blood Pressure Mean 117 102 Pulse Ox 100 98 Oxygen Delivery Method Room Air Room Air Positive well nourished and well developed General Appearance ED: well developed and NAD HEENT Reports moist mucous membranes Neck supple and no JVD Resp normal respiratory effort and clear to auscultation bilaterally Cardio regular rate and regular rhythm GI non-tender and non-distended Palpation: soft Extremity normal to inspection General Extremety ED: Negative for edema or tenderness General Extremity: Negative for edema Neuro oriented x3, CN's II-XII intact bilaterally and no sensory deficits noted Sensorium / Orientation: alert Motor Exam: strength 5/5 throughout Psych mental status grossly normal MDM MDM MDM Narrative Medical decision making narrative: Differential diagnosis includes but is not limited to cardiac dysrhythmia, cardiac ischemia, hypertensive urgency, hypertensive emergency, electrolyte abnormality, and anxiety. EKG will be obtained to assess for cardiac dysrhythmia and cardiac ischemia. Chest x-ray will be obtained to assess for pneumonia, bronchitis, and widened mediastinum. CBC will be obtained to assess for leukocytosis and anemia. Basic metabolic profile will be obtained to assessfor electrolyte abnormality and renal function. Lab Data Attestation: I reviewed the patient's lab results. Lab results narrative: CBC was reviewed and was essentially within normal limits. Basic metabolic profile was reviewed and was essentially within normal limits. High-sensitivitytroponin was reviewed and was normal at 7. Labs: Laboratory Results - last 24 hr 12/23/24 17:29 WBC 7.2 RBC 5.36 Hgb 15.6 H Hct 47.1 H MCV 87.9 MCH 29.1 MCHC 33.1 RDW Std Deviation 43.2 RDW Coeff of Theresa 13.2 Plt Count 256 MPV 10.5 Immature Gran % (Auto) 0.300 Neut % (Auto) 80.0 H Lymph % (Auto) 14.5 L Stevens % (Auto) 4.6 Eos % (Auto) 0.3 Baso % (Auto) 0.3 Absolute Neuts (auto) 5.8 Absolute Lymphs (auto) 1.04 Nucleated RBC % 0 Sodium 141 Potassium 3.8 Chloride 102 Carbon Dioxide 27.8 Anion Gap 11 BUN 17 Creatinine 0.56 L Estim Creat Clear Calc 49.56 L Est GFR (MDRD) Non-Af 92 BUN/Creatinine Ratio 29.7 H Glucose 103 H Calcium 9.5 Troponin T High Sens 7 Radiography Chest X-Ray - ED: 2 View, Read by ED Physician, Read by Radiologist and No AcuteDisease Diagnostic Testing: Clinical Impression(s) from Imaging Studies Chest X-Ray 12/23/24 17:48 IMPRESSION: Hyperaerated lungs which may reflect COPD. Reading Location: [address] PA and lateral chest x-ray was obtained. There are 2 views. On my independent interpretation, lung tsang are hyperinflated but clear. There is normal cardiac silhouette. Bony thorax is normal. There is no acute process noted. Radiologist also interpreted the x-ray and agrees. EKG Initial EKG: Attestation: I personally reviewed and interpreted this EKG as follows: Interpretation: Sinus Rhythm (74) and No Acute Injury Pattern Comments: EKG was obtained. On my independent interpretation, it showed anormal sinus rhythm with a rate of 74. AR interval, QRS interval, and QTc intervals were all normal. [employer] was normal. There are no acute ST or T wave changes. Prior EKG tracings: not available for review Prior: No Prior Treatment and Re-Evaluation :: Patient was advised of her findings. Patient's blood pressure improved to 140/84. However, just prior to discharge it went back up again to 181/84. Because of this, patient was given a dose of amlodipine here. Patient was givena prescription for amlodipine. Patient was instructed to follow-up with her primary care physician in 3 to 5 days for further evaluation and blood pressure management. Patient understood and was agreeable with the plan. All questions were answered. Discharge Plan Triage Chief Complaint: Hypertension ED Provider: Javon Matthew Dx/Rx/DC Orders Clinical Impression: Elevated blood pressure reading, Anxiety Instructions: ED High Blood Pressure Hypertension Prescriptions: New amlodipine 5 mg tablet 5 mg PO DAILY Qty: 7 0RF No Action albuterol sulfate 90 mcg/actuation HFA aerosol inhaler 2 puff INHALATION Q4H PRN (Reason: wheezing) budesonide-formoterol [Symbicort] 80-4.5 mcg/actuation HFA aerosol inhaler 2 puff INHALATION DAILY pravastatin 40 mg tablet 40 mg PO DAILY Women's 50 Plus Daily Formula 400 mcg-500 mg calcium-20 mcg tablet 1 tab PO DAILY cholecalciferol (vitamin D3) 50 mcg (2,000 unit) capsule 2,000 unit PO DAILY prednisone 50 mg tablet 50 mg PO DAILY Qty: 5 0RF Primary Care Provider: Lin Reid Referrals: Lin Reid, [employer] [Primary Care Provider, Family Practice] - 3-5 Days Print Language: Ethiopian Disposition Disposition: Home, Self Care What to do if you have Problems For any increased pain, shortness of breath, bleeding, nausea or vomiting, chestpain, or any unexpected problems, contact your Primary Care Provider. Call [facility] ([phone]) or report to the closest Emergency Room. Call 911 if necessary. 12/23/24 [id number] <Electronically signed by Javon Matthew DO> Cosigner Signature (if applicable): CC: DANNY Reid ~ Signed [facility] Work Phone: Evaluation note Note Date & Type Note Facility Evaluation note No assessment information availa ble [facility] Work Phone: Reason for referral (narrative) Note Date & Type Note Facility Reason for referral (narrative) No reason for referral information available [facility] Work Phone: Summary Purpose Family History No Family History Records FoundNo Family History Records FoundNo Family History Records FoundNo Family History Records Found Advance Directives Advance Directive Response Recorded Date/ Time Living Will No November 23, 2022 9:37pm Power of Environmental Health Physician No November 9:37pm Advance Directive Response Recorded Date/ Time Do you have a Healthcare Power of Environmental Health Physician? No December 23, 2024 5:41pm Chief Complaint and Reason for Visit Chief Complaint SCREENING Chief Complaint sob Chief Complaint Admit Date HTN December 23, 2024 4 :30pm Additional Source Comments INFORMATION SOURCE (unrecogn ized section and content) DATE CREATED AUTHOR 07/18/2018 [facility] DATE CREATED AUTHOR AUTHOR'S ORGANIZ ATION 07/21/2018 [facility] DATE CREATED AUTHOR AUTHOR'S ORGANIZ ATION 08/05/2020 [facility] DATE CREATED AUTHOR AUTHOR'S ORGANIZ ATION 12/30/2024 [facility] <item> Privacy Markings (unrecogniz ed section and content) Section Author: Maria L Denise PROHIBITION ON REDISCLOSURE OF CONFIDENTIAL INFORMATION This notice accompanies a disclosure of information concerning a client made to you with the consent of such client. Care Teams (unrecognized sec tion and content) Team Status: Active Member Role Status Dates Dr. Eliazar Brown MD Family Provider Active Dr. Eliazar Brown MD Primary Care Provider Active Team Status: Inactive Member Role Status Dates Dr. Eliazar Brown MD Primary Care Prov ider, Attending Provider, Referring Provider Active Team Status: Inactive Member Role Status Dates Dr. Eliazar Brown MD Primary Care Provider Active Dr. Jacob Mar DO Emergency Provider Active Team Status: Active Member Role/Relationship Status Dates DANNY Osorio Primary care physician Active Team Status: Inactive Member Role/Relationship Status Dates DANNY Osorio Primary care physician Active Start: December 23, 2024 End: December 23, 2024 Dr. Javon Matthew DO Attending physician Active Start: December 23, 2024 End: December 23, 2024 Dr. Javon Matthew DO Emergency Departm ent Physician Active Start: December 23, 2024 End: December 23, 2024 Goals (unrecognized section and content) Goals may be documented in a n alternate sectionGoals may be documented in an alternate sectionGoals may be documented in an alternate section FOR RECORDS PERTAINING TO PATIENTS WHO ARE OR HAVE BEEN ENROLLED IN A CHEMICAL DEPENDENCY/SUBSTANCEABUSE PROGRAM, SOME INFORMATION MAY BE OMITTED. This clinical summary was aggregated from multiple sources. Caution should be exercised in using it in the provision of clinical care. This summary normalizes information from multiple sources, and as a consequence, information in this document may materially change the coding, format and clinical context of patient data. In addition, data may be omitted in some cases. CLINICAL DECISIONS SHOULD BE BASED ON THE PRIMARY CLINICAL RECORDS. [facility] [employer] [facility]. provides no warranty or guarantee of the accuracy or completeness of information in this document.
--- NOTE | 2025-02-04 17:28 | EKG12_ITS ---
Test Reason : DIZZY Blood Pressure : */* mmHG Vent. Rate : 64 BPM Atrial Rate : 64 BPM P-R Int : 188 ms QRS Dur : 90 ms QT Int : 422 ms P-R-T Axes : 69 4 41 degrees QTcB Int : 435 ms Normal sinus rhythm Normal ECG Confirmed by CONRAD RESTREPO ([id number]), food editor NATALIYA ALEXANDRA ([id number]) on 02/08/2025 6:34:41 AM Referred By: Confirmed By: CONRAD RESTREPO
[2025-02-04 17:49] LABS: Hematocrit 44.1 % (37-47); Hemoglobin 14.7 g/dL (12.0-15.0); Immature Granulocytes Count 0.020 X10^3/uL (0.0-0.0); Mean Corp Hgb Conc 33.3 g/dL (32-36); Mean Corpuscular Volume 87.8 fL (81-99); Mean Platelet Vol. 11.1 fl (6.2-12.0); NRBC Flagged by Analyzer 0 % (0-5); Platelet Count 220 K/mm3 (150-450); RBC Distribution Width CV 13.4 % (11.6-14.6); RBC Distribution Width SD 43.1 fl (35.1-43.9); Red Blood Count 5.02 M/mm3 (4.2-5.4); White Blood Count 6.2 K/mm3 (4.4-11.0)
[2025-02-04] MEDS: 0.9% Normal Saline (1000mL) 1,000 ML 1000 ML IV (18:01)
[2025-02-04 18:09] VITALS: BP 174/71; PULSE 66; RESP 16
[2025-02-04 18:14] LABS: Troponin T High Sensitivity 8 ng/L (<=14)
[2025-02-04 18:15] LABS: Color, Urine Yellow (Yellow); Glucose, Dipstick Normal (Normal); Ketone-Dipstick Negative (Negative); Leukocyte Esterase-Dipstick Negative /ul (Negative); Nitrite-Dipstick Negative (Negative); Occult Blood-Urine 50 /ul (Negative); Protein-Dipstick 15 mg/dl (Negative); Specific Gravity, Urine 1.025 (1.002-1.030); Urine Bilirubin Dipstick Negative (Negative)
--- NOTE | 2025-02-04 18:32 | CT_ITS ---
PROCEDURE: CT BRAIN/HEAD WITHOUT CONTRAST 02/04/2025 REASON FOR EXAM: NEARSYNCOPE TECHNIQUE: Procedure Code: CTBR Modality: CT Procedure: BRAIN/HEAD WITHOUT CONTRAST Coronal and Sagittal reconstruction series were provided. One or more dose reduction techniques were used (e.g., Automated exposure control, adjustment of the mA and/or kV according to patient size, use of iterative reconstruction technique. RADIATION DOSE SUMMARY: CTDlvol: 44.99 mGy DLP: 796.11 mGycm COMPARISON: None. FINDINGS: No acute intracranial hemorrhage, extra-axial collection, mass effect or evidence of acute infarct. Mild age-appropriate generalized brain parenchymal volume loss and chronic microangiopathic changes. Atherosclerotic vascular calcifications. Grossly unremarkable orbital contents. Intact skull base and calvarium. Well-aerated paranasal sinuses and mastoid air cells. CT/Brain/Head without Contrast IMPRESSION: No acute intracranial abnormality. Reading Location: [id number]
[2025-02-04 18:33] LABS: Anion Gap 13 (5-15); BUN 17 mg/dL (4-19); BUN/Creat Ratio 28.8 RATIO (10-20); Calcium,Total 9.2 mg/dL (7.6-11.0); Carbon Dioxide 26.4 mmol/L (21.0-32.0); Chloride 100 mmol/L (98-108); Estimated Creatinine Clearance 50.32 ml/min (50-250); Glucose 154 mg/dL (70-99); Potassium 3.6 mmol/L (3.3-5.1)
--- NOTE | 2025-02-04 18:40 | RAD_ITS ---
PROCEDURE: CHEST PA AND LATERAL 02/04/2025 REASON FOR EXAM: NEAR SYNCOPE TECHNIQUE: Procedure Code: RADCXR Modality: DX Procedure: CHEST PA AND LATERAL COMPARISON: 12/23/2024 FINDINGS: Lungs/Pleura: Clear. No focal consolidation or pleural effusion. Heart/Mediastinum: Mildly enlarged. Central vascular congestion. Bones/Soft tissues: Degenerative changes of the spine with thoracic reverse S- shaped scoliosis. RAD/Chest PA and Lateral IMPRESSION: Mild cardiomegaly with vascular congestion. No acute pulmonary disease. Reading Location: [id number]
[2025-02-04 18:45] LABS: Mucous, Urine 2+ /hpf (<or=2+); Red Blood Cells-Urine 0-5 SEEN /hpf (0-5); Squamous Epithelial Cells - UA 0-5 SEEN /hpf (5-10)
[2025-02-04 18:55] VITALS: BP 150/77; BP 159/76; BP 166/90; PULSE 67; PULSE 74; PULSE 75
[2025-02-04 19:36] VITALS: BP 160/75; PULSE 74; RESP 18; O2SAT 98
[2025-02-04 20:17] LABS: Troponin T High Sens 2 HR 6 ng/L (<=14)
--- NOTE | 2025-02-04 20:27 | EX.ED.DYSGE1 ---
HPI History of Present Illness Chief Complaint: Hypertension Narrative Narrative: Patient is an 79-year-old female with reported history of dementia and hyperlipidemia as well as questionable history of hypertension presenting with vague episodes of what sounds like near syncope or lightheadedness. She has a very hard time describing these episodes. She states she has had 4 episodes today where she feels a softness coming from her head and moving down. She notes that if she does not sit down it things will get dark. She had similar presentation about a month ago and was seen in the ER. At that time her blood pressure was noted to be elevated and she was given a week supply of amlodipine. She has not followed up with her primary care doctor. She also reports of what sounds like a chronic tinnitus. She states her primary care doctor had referred her to ENT but she has not called to make the appointment yet. Currently denies any chest pain. She states she is very anxious is not sure what she supposed to do when she has the symptoms and is worried something bad will happen to her because of that. Family called EMS today who checked her blood pressure and it was initially at 180/80 but then went down to around 150/90. Decided come in for further evaluation. Show she does have this very mild pressure in her chest but again has a hard time describing any of the symptoms. [facility] Medical History Anxiety Hypothyroidism Former smoker Asthma Dementia Home Medications ?Medication ?Instructions ?Recorded ?Last Taken ?Type albuterol sulfate 90 mcg/actuation 2 puff inhalation Q4H PRN wheezing 11/23/22 Unknown History aerosol inhaler budesonide-formoterol HFA 80 2 puff inhalation DAILY asthma 11/23/22 Unknown History mcg-4.5 mcg/actuation aerosol inhaler (Symbicort) cholecalciferol (vitamin D3) 50 2,000 unit PO DAILY 11/23/22 Unknown History mcg (2,000 unit) capsule [id number] ac 400 1 tab PO DAILY 11/23/22 Unknown History mcg-calcium carb 500 mg-vit K1 20 mcg tablet (Women's 50 Plus Daily Formula) pravastatin 40 mg tablet 40 mg PO DAILY 11/23/22 Unknown History prednisone 50 mg tablet 50 mg PO DAILY #5 tabs 11/23/22 Unknown Rx amlodipine 5 mg tablet 5 mg PO DAILY #7 tabs 12/23/24 Unknown Rx Allergy/AdvReac Type Severity Reaction Status Date / Time No Known Allergies Allergy Verified 02/04/25 16:12 Surgical History H/O neck surgery Social History Smoking Status: Former smoker ROS ROS ED Constitutional Constitutional ED: Denies chills or fever(s) Eyes Eyes: Denies blurry vision Cardiovascular Cardiovascular: Reports other Details: Vague chest pressure/tightness ; Denies chest pain Respiratory/Chest Respiratory/Chest: Denies cough or dyspnea Gastrointestinal Gastrointestinal: Denies abdominal pain, nausea or vomiting Musculoskeletal Musculoskeletal: Denies arthralgias or myalgias Integumentary Denies rash Neurologic Neurologic: Reports weakness; Denies headache(s) or paresthesias Psychiatric Psychiatric: Reports anxiety Hematologic/Lymphatic Hematologic/Lymphatic: Denies easy bleeding or easy bruising EXAM Physical Exam Const Vital Signs: 02/04/25 16:10 02/04/25 17:36 02/04/25 18:09 Temperature 97.4 F L Temperature Source Temporal Pulse Rate 92 66 Pulse Rate [Lying] Pulse Rate [Sitting (for 1 minute prior to obtaining)] Pulse Rate [Standing (for 1 minute prior to obtaining)] Respiratory Rate 16 16 Respiratory Pattern Normal Blood Pressure 112/78 174/71 H Blood Pressure [Lying] Blood Pressure [Sitting (for 1 minute prior to obtaining)] Blood Pressure [Standing (for 1 minute prior to obtaining)] Blood Pressure Mean 89 105 Blood Pressure Mean [Lying] Blood Pressure Mean [Sitting (for 1 minute prior to obtaining)] Blood Pressure Mean [Standing (for 1 minute prior to obtaining)] Pulse Ox 96 Oxygen Delivery Method Room Air 02/04/25 18:55 02/04/25 19:36 02/04/25 20:34 Temperature 97.8 F Temperature Source Pulse Rate 74 74 Pulse Rate [Lying] 67 Pulse Rate [Sitting (for 1 minute prior to obtaining)] 75 Pulse Rate [Standing (for 1 minute prior to obtaining)] 74 Respiratory Rate 18 18 Respiratory Pattern Blood Pressure 160/75 H 160/75 H Blood Pressure [Lying] 150/77 H Blood Pressure [Sitting (for 1 minute prior to obtaining)] 159/76 H Blood Pressure [Standing (for 1 minute prior to obtaining)] 166/90 H Blood Pressure Mean 103 103 Blood Pressure Mean [Lying] 101 Blood Pressure Mean [Sitting (for 1 minute prior to obtaining)] 103 Blood Pressure Mean [Standing (for 1 minute prior to obtaining)] 115 Pulse Ox 98 98 Oxygen Delivery Method Room Air Positive well nourished and well developed General Appearance ED: well developed and NAD HEENT Reports TM's clear and moist mucous membranes Negative for trauma Tympanic Membrane ED: Yes TM's clear Eyes PERRL Neck supple and no JVD Chest Wall inspection of chest normal and palpation of chest normal Resp normal respiratory effort and clear to auscultation bilaterally Cardio regular rate, regular rhythm and no murmurs GI normal to inspection, nondistended, normoactive bowel sounds and non-tender Extremity normal to inspection General Extremety ED: Yes edema General Extremity: edema Neuro oriented x3, CN's II-XII intact bilaterally and no sensory deficits noted Sensorium / Orientation: alert Motor Exam: strength 5/5 throughout; Negative for general weakness Psych mental status grossly normal Mood & Affect: anxious Skin no rashes or lesions noted and no wounds MDM MDM MDM Narrative Medical decision making narrative: Patient valuated for vague intermittent episodes of lightheadedness what sounds like maybe near syncope. She is a very hard time describing the symptoms but does not seem to be vertigo does not change with movements of her head. She does not have any nystagmus. No truncal ataxia normal [id number]. Her NIH is 0 suspicion for any central process. Given her dementia and vague symptoms I will obtain a CT of the brain to rule out chronic subdural or other acute intracranial process that could be causing the symptoms. I also will obtain cardiac workup and check a TSH as well as look for signs of infection such as UTI which could be contributing. Chest x-ray reviewed myself as radiology does show some cardiomegaly with vascular congestion. This appears mild. She is not have any hypoxia or increased O2 demands. Not complaining shortness of breath or dyspnea. I do not think this requires further inpatient workup. The patient did have an episode of this sensation while in bed however review of telemetry at this time did not show any arrhythmia. Her workup is largely negative. Orthostatics are negative in the emergency room. Blood pressure is mildly labile but is not elevated up to be considered a hypertensive emergency. At this time patient will be discharged home and we will arrange for outpatient Holter monitor. I do not think she requires admission to the hospital at this time and patient is comfortable with this as well as her . No witnessed arrhythmia in the emergency room. Patient given reassurance. Counseled on need for further outpatient workup of this. Also discussed checking her blood pressure daily and keeping a log for when she follows with her primary care doctor. She was given IV fluids in case there was a component of hypovolemia. Patient is discharged home in stable condition. Given return precautions Lab Data Attestation: I reviewed the patient's lab results. Labs: Laboratory Results - last 24 hr 02/04/25 02/04/25 02/04/25 16:43 18:01 19:34 WBC 6.2 RBC 5.02 Hgb 14.7 Hct 44.1 MCV 87.8 MCH 29.3 MCHC 33.3 RDW Std Deviation 43.1 RDW Coeff of Theresa 13.4 Plt Count 220 MPV 11.1 Immature Gran % (Auto) 0.300 Neut % (Auto) 81.6 H Lymph % (Auto) 14.8 L [place] % (Auto) 2.6 Eos % (Auto) 0.2 Baso % (Auto) 0.5 Absolute Neuts (auto) 5.1 Absolute Lymphs (auto) 0.92 Nucleated RBC % 0 Sodium 139 Potassium 3.6 Chloride 100 Carbon Dioxide 26.4 Anion Gap 13 BUN 17 Creatinine 0.59 L Estim Creat Clear Calc 50.32 Est GFR (MDRD) Non-Af 91 BUN/Creatinine Ratio 28.8 H Glucose 154 H Calcium 9.2 Troponin T High Sens 8 D Troponin T Hi Sens 2 Hr 6 TSH 1.470 Urine Color Yellow Urine Clarity Clear Urine pH 5.0 Ur Specific [place] 1.025 Urine Protein 15 H Urine Glucose (UA) Normal Urine Ketones Negative Urine Occult Blood 50 H Urine Nitrite Negative Urine Bilirubin Negative Urine Urobilinogen Normal Ur Leukocyte Esterase Negative Urine RBC 0-5 SEEN Urine WBC 0-5 SEEN Ur Squamous Epith Cells 0-5 SEEN Urine Bacteria 1+ Hyaline Casts 0-5 SEEN Urine Mucus 2+ Radiography Diagnostic Testing: Clinical Impression(s) from Imaging Studies Brain CT 02/04/25 18:32 IMPRESSION: No acute intracranial abnormality. Reading Location: [facility] Chest X-Ray 02/04/25 18:40 IMPRESSION: Mild cardiomegaly with vascular congestion. No acute pulmonary disease. Reading Location: [facility] Rhythm Strip Rhythm Strip: Sinus Rhythm Rate: 64 Ectopy: None EKG Initial EKG: Attestation: I personally reviewed and interpreted this EKG as follows: Interpretation: Sinus Rhythm Comments: Normal sinus rhythm at a rate of 64 bpm Normal axis Normal intervals Normal ST segments Discharge Plan Triage Chief Complaint: Hypertension ED Provider: Lynn Diggs Dx/Rx/DC Orders Clinical Impression: Near syncope, Elevated blood pressure reading Instructions: ED Dizziness, Uncertain Cause, ED Hypertension, To Be Confirmed Prescriptions: No Action albuterol sulfate 90 mcg/actuation HFA aerosol inhaler 2 puff INHALATION Q4H PRN (Reason: wheezing) budesonide-formoterol [Symbicort] 80-4.5 mcg/actuation HFA aerosol inhaler 2 puff INHALATION DAILY pravastatin 40 mg tablet 40 mg PO DAILY Women's 50 Plus Daily Formula 400 mcg-500 mg calcium-20 mcg tablet 1 tab PO DAILY cholecalciferol (vitamin D3) 50 mcg (2,000 unit) capsule 2,000 unit PO DAILY prednisone 50 mg tablet 50 mg PO DAILY Qty: 5 0RF amlodipine 5 mg tablet 5 mg PO DAILY Qty: 7 0RF Other Ambulatory Orders: Cardiac Holter Monitor, 48 Hrs (Routine) Timeframe: 1 Week Facility: [facility] - Location: Cardiovascular Services Ordered By: Dr. Lynn Diggs Primary Care Provider: Lin Reid Referrals: Lin Reid, [facility] [Primary Care Provider, Family Practice] Activity Restrictions/Additional Instructions: Your workup today was largely normal and reassuring. Your blood pressure did go up and down while in the emergency room. This is not consistent with hypertensive emergency. You will be contacted for Holter monitor within the next week. Please follow with your family doctor as well. Please check your blood pressure daily and keep a log for when you follow-up with your family doctor. Print Language: Frisian Disposition Disposition: Home, Self Care Discharge Date/Time: 02/04/25 20:35
[2025-02-04 20:34] VITALS: BP 160/75; PULSE 74; RESP 18; TEMP 36.6; O2SAT 98
== END 2025-02-04 20:35 | disposition home or self-care (01) ==
PROVIDERS: Emergency Provider Emergency Medicine; PCP Nurse Practitioner Family; Visit Provider Emergency Medicine
DX: R42 Dizziness and giddiness (principal); F03.90 Unspecified dementia, unspecified severity, without behavioral disturbance, psychotic disturbance, mood disturbance, and anxiety; E86.1 Hypovolemia; Z87.891 Personal history of nicotine dependence; R03.0 Elevated blood-pressure reading, without diagnosis of hypertension; E78.5 Hyperlipidemia, unspecified; J45.909 Unspecified asthma, uncomplicated
CPT/HCPCS: 70450; 71046; 80048; 81001; 84443; 84484; 85025; 93005; 96360; 96361; 99284; A4216

== ENCOUNTER → 2025-02-12 | Outpatient (CLI) | payer MEDICARE, SELFPAY ==
--- OUTSIDE RECORDS SUMMARY | 2025-02-12 12:23 | XMS RPT_ITS | CCD ---
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 Javon Matthew DO Attending Physician Dr. Javon Matthew DO Emergency Department Physi dank Allergies Allergy Classification Reported Allergen(s) Allergy Type Date of Onset Reaction(s) Facility (1 source) No Known Medication Allergies; Translations: [No Known Medication Allergies] Propensity to adverse reactions to drug (disorder) [facility] Repository Medications Current Medications Medication Drug Class(es) Dates Sig (Normalized) Sig (Original) [id number] actuat albuterol 0.09 mg/actuat metered dose [...] Start: 11-23-2022 take 1 capsule by mo akh once daily Jm-Yfw-Fdtpu-Calcium Carb-K1 (Women's 50 Plus Daily Formula) 400 mcg-500 mg calcium-20 mcg tablet (2 sources) Start: 11-23-2022 Start: 11-23-2022 take 1 tablet by laurel th once daily Id-Nle-Srgqe-Calcium Carb-K1 (Women's 50 Plus Daily Formula) 400 [...] daily take 1 tablet by mouth once christaina y pravastatin 10 mg oral tablet ; [...] 12 Lead EKGon 12-23-2024 12 Lead EKG [facility] Cardi[facility] Services [address] [place] [address] 12 Lead EKG 12/23/24 1733 MR#: [id number] Acct: [id number] Name: CHRISTY QUEZADA Rep #: [id number] : 1945 79 From: David Velazquez MD [...] ECG Confirmed by DAVID VELAZQUEZ MD ([id number]), market editor OSEAS FERRIS ([id number]) on 12/24/2024 9:53:48 AM Referred By: Confirmed By: DAVID VELAZQUEZ MD 12/24/24 0953 Date David Velazquez MD CC: DANNY Reid; Dr. Javon Matthew, DO Signed Normal [facility] Absolute lymphocyte countOrd ered By: Javon Matthew on 12-23-2024 Lymphocytes Auto (Unsp spec) [#/Vol] 1.04 10*3/uL 0.83-4.51 [facility] Absolute neutrophil countOrd ered By: Javon Matthew on 12-23-2024 Neutrophils (Bld) [#/Vol] 5.8 10*3/uL 2.0-7.7 [facility] Anion gap in Serum or Plasma Ordered By: Javon Matthew on 12-23-2024 Anion gap [Moles/Vol] 11 mmol/L 07-23 [facility] Automated lymphocyte count a s percentage of total leukocytesOrdered By: Javon Matthew on 12-23-2024 Lymphocytes/100 WBC Auto (Unsp spec) 14.5 % Low 19-41 [facility] BUN/creatinine ratioOrdered By: Javon Matthew on 12-23-2024 Urea nitrogen/Creatinine [Mass ratio] 29.7 mg/mg High 10 [facility] Basic Metabolic Profile (BMP )on 12-23-2024 BUN/CRE 29.7 RATIO High 12-28 [facility] Comment on above: Performed By: #### L 100.0100, L500.2500 #### [facility] [address] [place], [address] Calcium [Mass/Vol] 9.5 mg/dL Normal 7.6-11.0 [facility] Comment on above: Performed By: #### L 100.0100, L500.2500 #### [facility] [address] [place], [address] Chloride [Moles/Vol] 102 mmol/L Normal 98-108 [facility] Comment on above: Performed By: #### L 100.0100, L500.2500 #### [facility] [address] [place], [address] CO2 [Moles/Vol] 27.8 mmol/L Normal 21.0-32.0 [facility] Comment on above: Performed By: #### L 100.0100, L500.2500 #### [facility] [address] [place], [address] Creatinine [Mass/Vol] 0.56 mg/dL Low 0.70-1.20 [facility] Comment on above: Performed By: #### L 100.0100, L500.2500 #### [facility] [address] [place], [address] ECRCL 49.56 ml/min Low 50-250 [facility] Comment on above: Performed By: #### L 100.0100, L500.2500 #### [facility] [address] [place], [address] GAP 11 Normal 5-15 [facility] Comment on above: Performed By: #### L 100.0100, L500.2500 #### [facility] [address] [place], [address] GFR/1.73 sq M.predicted among non-blacks MDRD (S/P/Bld) [Vol rate/Area] 92 mL/min/{1.73_m2} Normal >60 [facility] Comment on above: Result Comment: mL/m in/1.73m2 CKD-EPI Creatinine Equation (2020) Performed By: #### L 100.0100, L500.2500 #### [facility] [address] [place], [address] Glucose [Mass/Vol] 103 mg/dL High 70-99 [facility] Comment on above: Performed By: #### L 100.0100, L500.2500 #### [facility] [address] [place], [address] Potassium [Moles/Vol] 3.8 mmol/L Normal 3.3-5.1 [facility] Comment on above: Performed By: #### L 100.0100, L500.2500 #### [facility] [address] [place], [address] Sodium [Moles/Vol] 141 mmol/L Normal 133-145 [facility] Comment on above: Performed By: #### L 100.0100, L500.2500 #### [facility] [address] [place], [address] Urea nitrogen [Mass/Vol] 17 mg/dL Normal 4-19 [facility] Comment on above: Performed By: #### L 100.0100, L500.2500 #### [facility] [address] [place], [address] Basophil percentageOrdered B y: Javon Matthew on 12-23-2024 Basophils/100 WBC (Bld) 0.3 % 0-1 [facility] CBC W/Diff, Automatedon 12-09 Absolute Lymph 1.04 X10 3/uL Normal 0.83-4.51 [facility] Comment on above: Performed By: #### L 100.0100, L500.2500 #### [facility] [address] [place], [address] Absolute Neut 5.8 X10 3/uL Normal 2.0-7.7 [facility] Comment on above: Performed By: #### L 100.0100, L500.2500 #### [facility] [address] [place], [address] Basophils/100 WBC (Bld) 0.3 % Normal 0-1 [facility] Comment on above: Performed By: #### L 100.0100, L500.2500 #### [facility] [address] [place], [address] Eosinophils/100 WBC (Bld) 0.3 % Normal 0-5 [facility] Comment on above: Performed By: #### L 100.0100, L500.2500 #### [facility] [address] [place], [address] Erythrocyte distribution width (RBC) [Ratio] 13.2 % Normal 11.6-14.6 [facility] Comment on above: Performed By: #### L 100.0100, L500.2500 #### [facility] [address] [place], [address] Hematocrit (Bld) [Volume fraction] 47.1 % High 37-47 [facility] Comment on above: Performed By: #### L 100.0100, L500.2500 #### [facility] [address] [place], [address] Hemoglobin (Bld) [Mass/Vol] 15.6 g/dL High 12.0-15.0 [facility] Comment on above: Performed By: #### L 100.0100, L500.2500 #### [facility] [address] [place], [address] IG% 0.300 Normal 0.0-0.9 [facility] Comment on above: Result Comment: IG% - Immature Granulocytes (promyelocytes, myelocytes and metamyelocytes) > 1% indicates that a LEFT SHIFT is Present. Performed By: #### L 100.0100, L500.2500 #### [facility] [address] [place], [address] Lymphocytes/100 WBC (Bld) 14.5 % Low 19-41 [facility] Comment on above: Performed By: #### L 100.0100, L500.2500 #### [facility] [address] [place], [address] MCH (RBC) [Entitic mass] 29.1 pg Normal 27.0-32.0 [facility] Comment on above: Performed By: #### L 100.0100, L500.2500 #### [facility] [address] [place], [address] MCHC (RBC) [Mass/Vol] 33.1 g/dL Normal 32-36 [facility] Comment on above: Performed By: #### L 100.0100, L500.2500 #### [facility] [address] [place], [address] MCV (RBC) [Entitic vol] 87.9 fL Normal 81-99 [facility] Comment on above: Performed By: #### L 100.0100, L500.2500 #### [facility] [address] [place], [address] Monocytes/100 WBC (Bld) 4.6 % Normal 0-10 [facility] Comment on above: Performed By: #### L 100.0100, L500.2500 #### [facility] [address] [place], [address] Neutrophils/100 WBC (Bld) 80.0 % High 47-70 [facility] Comment on above: Performed By: #### L 100.0100, L500.2500 #### [facility] [address] [place], [address] Nucleated RBC (Bld) [#/Vol] 0 10*3/uL Normal 0-5 [facility] Comment on above: Performed By: #### L 100.0100, L500.2500 #### [facility] [address] [place], [address] Platelet mean volume (Bld) [Entitic vol] 10.5 fL Normal 6.2-12.0 [facility] Comment on above: Performed By: #### L 100.0100, L500.2500 #### [facility] [address] [place], [address] Platelets (Bld) [#/Vol] 256 10*3/uL Normal 150-450 [facility] Comment on above: Performed By: #### L 100.0100, L500.2500 #### [facility] [address] [place], [address] RBC (Bld) [#/Vol] 5.36 10*6/uL Normal 4.2-5.4 [facility] Comment on above: Performed By: #### L 100.0100, L500.2500 #### [facility] [address] [place], [address] RDW SD 43.2 fl Normal 35.1-43.9 [facility] Comment on above: Performed By: #### L 100.0100, L500.2500 #### [facility] [address] [place], [address] WBC (Bld) [#/Vol] 7.2 10*3/uL Normal 4.4-11.0 [facility] Comment on above: Performed By: #### L 100.0100, L500.2500 #### [facility] [address] [place], [address] Carbon dioxide, total [Moles /volume] in Central venous bloodOrdered By: Javon Matthew on 12-23-2024 CO2 [Moles/Vol] 27.8 mmol/L 21.0-32.0 [facility] Chest PA and Lateralon 12-23 Chest PA and Lateral [facility] Imaging Services [address] [place] [address] Chest PA and Lateral MR#: [id number] Acct: [id number] Name: CHRISTY QUEZADA Rep #: [id number] : 1945 F 79 From: Jermaine Kennedy MD PCP: DANNY Osorio Status: REG ER Study: Chest PA and Lateral Date of Exam: 12/23/24 Exam# [id number] Ordering Dr: Javon Matthew DO PROCEDURE: CHEST PA AND LATERAL 12/23/2024 REASON FOR EXAM: HYPERTENSION TECHNIQUE: Procedure Code: RADCXR Modality: DX Procedure: CHEST PA AND LATERAL FINDINGS: The heart is normal in size. The lungs are clear. Lungs are hyperaerated. No acute osseous abnormalities. RAD/Chest PA and Lateral IMPRESSION: Hyperaerated lungs which may reflect COPD. Reading Location: [address] CC: DANNY Reid; Dr. Javon Matthew DO Joiner Apprentice: Signed Normal [facility] Chloride assayOrdered By: Aly Matthew on 12-23-2024 Chloride [Moles/Vol] 102 mmol/L 98-108 [facility] Electrocardiogram reportOrde red By: David Velazquez on 12-23-2024 EKG study [facility] Cardiovascular Services [address] [place] [address] 12 Lead EKG 12/23/24 1733 MR#: [id number] Acct: [id number] Name: CHRISTY QUEZADA Rep #:[id number] : 1945 79 From: David Velazquez [...] Normal ECG Confirmed by DAVID VELAZQUEZ MD ([id number]), market editor OSEAS FERRIS ([id number]) on 12/24/2024 9:53:48 AM Referred By: Confirmed By: DAVID VELAZQUEZ MD 12/24/24 0953 Date _ David Velazquez MD CC: DANNY Reid; Dr. Javon Matthew DO ~ Signed [facility] Other Emergency Department Summary on 12-23-2024 Emergency Department Summary [facility] Medical Records Department [address] [place] [address] Emergency Department Summary 12/23/24 MR#: [id number] Acct: [id number] Name: CHRISTY QUEZADA Rep #: [id number] : 1945 79 From: Javon Matthew DO PCP: DANNY Osorio Status:DEP ER Location: ED HPI History [...] any headaches. Patient denies any visual changes. [facility] Medical History (Updated 12/23/24 @ 19:44 [...] Unkno wn History mcg (2,000 unit) capsule qwlelcvp-lcx-hmptb ac 400 1 tab PO DAILY 11/23/22 [...] patient's lab (more content not included)... Normal [facility] Eosinophil percentageOrdered By: Javon Matthew on 12-23-2024 Eosinophils/100 WBC (Bld) 0.3 % 0-5 [facility] Erythrocyte distribution wid th ratioOrdered By: Javon Matthew on 12-23-2024 Erythrocyte distribution width (RBC) [Ratio] 13.2 % 11.6-14.6 [facility] Erythrocyte distribution wid th standard deviationOrdered By: Javon Matthew on 12-23-2024 Erythrocyte distribution width (RBC) [Ratio] 43.2 fl 35.1-43.9 [facility] Glomerular filtration rate ( GFR) estimation/1.73 sq m using serum, plasma, or whole bOrdered By: Javon Matthew on 12-23-2024 GFR/1.73 sq M.predicted among non-blacks MDRD (S/P/Bld) [Vol rate/Area] 92 mL/min/{1.73_m2} >60 [facility] Comment on above: mL/min/1.73m2 CKD-EP I Creatinine Equation (2020) Hematocrit Auto (Bld) [Volum e fraction]Ordered By: Javon Matthew on 12-23-2024 Hematocrit (Bld) [Volume fraction] 47.1 % High 37-47 [facility] Hemoglobin measurementOrdere d By: Javon Matthew on 12-23-2024 Hemoglobin (Bld) [Mass/Vol] 15.6 g/dL High 12.0-15.0 [facility] Immature granulocytes/100 WB C Auto (Bld)Ordered By: Javon Matthew on 12-23-2024 Immature granulocytes/100 WBC (Bld) 0.300 % 0.0-0.9 [facility] Comment on above: IG% - Immature Granu locytes (promyelocytes, myelocytes and metamyelocytes) > 1% indicates that a LEFT SHIFT is Present. L501.4021on 12-23-2024 Trop T High Sen 7 ng/L Normal <=14 [facility] Comment on above: Performed By: #### L 501.4021 #### [facility] [address] [place], [address] MCV (mean corpuscular volume ) determinationOrdered By: Javon Matthew on 12-23-2024 MCV (RBC) [Entitic vol] 87.9 fL 81-99 [facility] Mean corpuscular hemoglobin (MCH) determinationOrdered By: Javon Matthew on 12-23-2024 MCH (RBC) [Entitic mass] 29.1 pg 27.0-32.0 [facility] Mean corpuscular hemoglobin concentration (MCHC) determinationOrdered By: Javon Matthew on 12-23-2024 MCHC (RBC) [Mass/Vol] 33.1 g/dL 32-36 [facility] Mean platelet volume determi nationOrdered By: Javon Matthew on 12-23-2024 Platelet mean volume (Bld) [Entitic vol] 10.5 fL 6.2-12.0 [facility] Monocyte percentageOrdered B y: Javon Matthew on 12-23-2024 Monocytes/100 WBC (Bld) 4.6 % 0-10 [facility] Neutrophil percentageOrdered By: Javon Matthew on 12-23-2024 Neutrophils/100 WBC (Bld) 80.0 % High 47-70 [facility] Nucleated red blood cell per centageOrdered By: Javon Matthew on 12-23-2024 Nucleated RBC/100 WBC (Bld) [Ratio] 0 % 0-5 [facility] Platelet countOrdered By: Aly Matthew on 12-23-2024 Platelets (Bld) [#/Vol] 256 10*3/uL 150-450 [facility] Potassium measurement (mass/ volume)Ordered By: Javon Matthew on 12-23-2024 Potassium (Unsp spec) [Mass/Vol] 3.8 mmol/L 3.3-5.1 [facility] RBC Auto (Bld) [#/Vol]Ordere d By: Javon Matthew on 12-23-2024 RBC (Bld) [#/Vol] 5.36 10*6/uL 4.2-5.4 [facility] Serum creatinine measurement (mass/volume)Ordered By: Javon Matthew on 12-23-2024 Creatinine [Mass/Vol] 0.56 mg/dL Low 0.70-1.20 [facility] Serum glucose measurement (m ass/volume)Ordered By: Javon Matthew on 12-23-2024 Glucose [Mass/Vol] 103 mg/dL High 70-99 [facility] Serum or plasma calcium ulysses urement (mass/volume)Ordered By: Javon Matthew on 12-23-2024 Calcium [Mass/Vol] 9.5 mg/dL 7.6-11.0 [facility] Serum or plasma urea nitroge n measurement (mass/volume)Ordered By: Javon Matthew on 12-23-2024 Urea nitrogen [Mass/Vol] 17 mg/dL 4-19 [facility] Sodium levelOrdered By: Javon Matthew on 12-23-2024 Sodium [Moles/Vol] 141 mmol/L 133-145 [facility] Troponin T.cardiac [Mass/vol ume] in Serum or Plasma by High sensitivity methodOrdered By: Javon Matthew on 12-23-2024 Troponin T.cardiac High sensitivity method [Mass/Vol] 7 ng/L <14 [facility] White blood cell (WBC) count Ordered By: Javon Matthew on 12-23-2024 WBC (Bld) [#/Vol] 7.2 10*3/uL 4.4-11.0 [facility] SCRN MAMM (CAD)W/SMITHA BILATo n 04-14-2024 SCRN MAMM (CAD)W/SMITHA BILAT [facility] Imaging Services [address] [place] [address] SCRN MAMM (CAD)W/SMITHA BILAT MR#: [id number] Acct: [id number] Name: CHRISTY QUEZADA Rep #: [id number] : 1945 F 79 From: Carley Yost MD PCP: DANNY Osorio Status: [facility] Study: SCRN MAMM (CAD)W/SMITHA BILAT Date of Exam: 07/03 Exam# [id number] Ordering Dr: Lin Reid ADDENDUM by Dr. Carley Yost MD on 05/01/24 at 0939 The prior examination dated 04/13/2022 is now available. The images are reviewed and the BI-RADS remains 1, negative. The patient should return to annual screening mammogram. Reading Location: [facility] 05/01/24 0939 Date cc: DANNY [...] of the results by letter. Reading Location: [facility] CC: DANNY Reid Joiner Apprentice: Signed Normal [facility] CBC W/Diff, Automatedon 11-0 Absolute Lymph 1.45 X10 3/uL Normal 0.83-4.51 [facility] Comment on above: Performed By: #### L 500.4050, L506.1000, L500.4100, L100.0100 #### [facility] [address] [place], [address] Absolute Neut 4.3 X10 3/uL Normal 2.0-7.7 [facility] Comment on above: Performed By: #### L 500.4050, L506.1000, L500.4100, L100.0100 #### [facility] [address] [place], [address] Basophils/100 WBC (Bld) 0.8 % Normal 0-1 [facility] Comment on above: Performed By: #### L 500.4050, L506.1000, L500.4100, L100.0100 #### [facility] [address] [place], [address] Eosinophils/100 WBC (Bld) 2.2 % Normal 0-5 [facility] Comment on above: Performed By: #### L 500.4050, L506.1000, L500.4100, L100.0100 #### [facility] [address] [place], [address] Erythrocyte distribution width (RBC) [Ratio] 13.6 % Normal 11.6-14.6 [facility] Comment on above: Performed By: #### L 500.4050, L506.1000, L500.4100, L100.0100 #### [facility] [address] [place], [address] Hematocrit (Bld) [Volume fraction] 49.2 % High 37-47 [facility] Comment on above: Performed By: #### L 500.4050, L506.1000, L500.4100, L100.0100 #### [facility] [address] [place], [address] Hemoglobin (Bld) [Mass/Vol] 15.6 g/dL High 12.0-15.0 [facility] Comment on above: Performed By: #### L 500.4050, L506.1000, L500.4100, L100.0100 #### [facility] [address] [place], [address] IG% 0.300 Normal 0.0-0.9 [facility] Comment on above: Result Comment: IG% - Immature Granulocytes (promyelocytes, myelocytes and metamyelocytes) > 1% indicates that a LEFT SHIFT is Present. Performed By: #### L 500.4050, L506.1000, L500.4100, L100.0100 #### [facility] [address] [place], [address] Lymphocytes/100 WBC (Bld) 22.8 % Normal 19-41 [facility] Comment on above: Performed By: #### L 500.4050, L506.1000, L500.4100, L100.0100 #### [facility] [address] [place], [address] MCH (RBC) [Entitic mass] 28.5 pg Normal 27.0-32.0 [facility] Comment on above: Performed By: #### L 500.4050, L506.1000, L500.4100, L100.0100 #### [facility] [address] [place], [address] MCHC (RBC) [Mass/Vol] 31.7 g/dL Low 32-36 [facility] Comment on above: Performed By: #### L 500.4050, L506.1000, L500.4100, L100.0100 #### [facility] [address] [place], [address] MCV (RBC) [Entitic vol] 89.9 fL Normal 81-99 [facility] Comment on above: Performed By: #### L 500.4050, L506.1000, L500.4100, L100.0100 #### [facility] [address] [place], [address] Monocytes/100 WBC (Bld) 7.2 % Normal 0-10 [facility] Comment on above: Performed By: #### L 500.4050, L506.1000, L500.4100, L100.0100 #### [facility] [address] [place], [address] Neutrophils/100 WBC (Bld) 66.7 % Normal 47-70 [facility] Comment on above: Performed By: #### L 500.4050, L506.1000, L500.4100, L100.0100 #### [facility] [address] [place], [address] Nucleated RBC (Bld) [#/Vol] 0 10*3/uL Normal 0-5 [facility] Comment on above: Performed By: #### L 500.4050, L506.1000, L500.4100, L100.0100 #### [facility] [address] [place], [address] Platelet mean volume (Bld) [Entitic vol] 10.9 fL Normal 6.2-12.0 [facility] Comment on above: Performed By: #### L 500.4050, L506.1000, L500.4100, L100.0100 #### [facility] [address] [place], [address] Platelets (Bld) [#/Vol] 227 10*3/uL Normal 150-450 [facility] Comment on above: Performed By: #### L 500.4050, L506.1000, L500.4100, L100.0100 #### [facility] [address] [place], [address] RBC (Bld) [#/Vol] 5.47 10*6/uL High 4.2-5.4 [facility] Comment on above: Performed By: #### L 500.4050, L506.1000, L500.4100, L100.0100 #### [facility] [address] [place], [address] RDW SD 45.0 fl High 35.1-43.9 [facility] Comment on above: Performed By: #### L 500.4050, L506.1000, L500.4100, L100.0100 #### [facility] [address] [place], [address] WBC (Bld) [#/Vol] 6.4 10*3/uL Normal 4.4-11.0 [facility] Comment on above: Performed By: #### L 500.4050, L506.1000, L500.4100, L100.0100 #### [facility] [address] [place], [address] Comprehensive Metabolic Prof ilon 01-10-2024 Albumin [Mass/Vol] 3.8 g/dL Normal 3.2-5.0 [facility] Comment on above: Performed By: #### L 500.4050, L506.1000, L500.4100, L100.0100 #### [facility] [address] [place], [address] Albumin/Globulin [Mass ratio] 1.0 {ratio} Normal 0.9-2.4 [facility] Comment on above: Performed By: #### L 500.4050, L506.1000, L500.4100, L100.0100 #### [facility] [address] [place], [address] ALK P 81 U/L Normal 45-117 [facility] Comment on above: Performed By: #### L 500.4050, L506.1000, L500.4100, L100.0100 #### [facility] [address] [place], [address] ALT [Catalytic activity/Vol] 25 U/L Normal 13-56 [facility] Comment on above: Performed By: #### L 500.4050, L506.1000, L500.4100, L100.0100 #### [facility] [address] [place], [address] AST [Catalytic activity/Vol] 26 U/L Normal 15-37 [facility] Comment on above: Performed By: #### L 500.4050, L506.1000, L500.4100, L100.0100 #### [facility] [address] [place], [address] Bilirubin [Mass/Vol] 1.90 mg/dL High 0.20-1.00 [facility] Comment on above: Result Comment: For patients on eltrombopag therapy, use of Dimension [place] TBIL is not recommended. Performed By: #### L 500.4050, L506.1000, L500.4100, L100.0100 #### [facility] [address] [place], [address] BUN/CRE 19.7 RATIO Normal 10-20 [facility] Comment on above: Performed By: #### L 500.4050, L506.1000, L500.4100, L100.0100 #### [facility] [address] [place], [address] CA,Total 9.3 mg/dL Normal 8.5-10.1 [facility] Comment on above: Performed By: #### L 500.4050, L506.1000, L500.4100, L100.0100 #### [facility] [address] [place], [address] Chloride [Moles/Vol] 106 mmol/L Normal 98-107 [facility] Comment on above: Performed By: #### L 500.4050, L506.1000, L500.4100, L100.0100 #### [facility] [address] [place], [address] CO2 [Moles/Vol] 31.0 mmol/L Normal 21.0-32.0 [facility] Comment on above: Performed By: #### L 500.4050, L506.1000, L500.4100, L100.0100 #### [facility] [address] [place], [address] Creatinine [Mass/Vol] 0.66 mg/dL Normal 0.55-1.02 [facility] Comment on above: Result Comment: The validity of the calculated GFR GFRAA in patients over 70 years has not been determined. Clinical correlation is essential. Performed By: #### L 500.4050, L506.1000, L500.4100, L100.0100 #### [facility] [address] [place], [address] EST GFR - AA 110 mL/min Normal >60 [facility] Comment on above: Result Comment: Afri can Lebanese GFR Calc Performed By: #### L 500.4050, L506.1000, L500.4100, L100.0100 #### [facility] [address] [place], [address] GAP 5 Normal 5-15 [facility] Comment on above: Performed By: #### L 500.4050, L506.1000, L500.4100, L100.0100 #### [facility] [address] [place], [address] GFR/1.73 sq M.predicted among non-blacks MDRD (S/P/Bld) [Vol rate/Area] 91 mL/min/{1.73_m2} Normal >60 [facility] Comment on above: Result Comment: Non- GFR Calc Performed By: #### L 500.4050, L506.1000, L500.4100, L100.0100 #### [facility] [address] [place], [address] Globulin (S) [Mass/Vol] 3.8 g/dL Normal 2.2-4.2 [facility] Comment on above: Performed By: #### L 500.4050, L506.1000, L500.4100, L100.0100 #### [facility] [address] [place], [address] Glucose [Mass/Vol] 82 mg/dL Normal 74-106 [facility] Comment on above: Performed By: #### L 500.4050, L506.1000, L500.4100, L100.0100 #### [facility] [address] [place], [address] Potassium [Moles/Vol] 4.0 mmol/L Normal 3.5-5.1 [facility] Comment on above: Performed By: #### L 500.4050, L506.1000, L500.4100, L100.0100 #### [facility] [address] [place], [address] Sodium [Moles/Vol] 142 mmol/L Normal 136-145 [facility] Comment on above: Performed By: #### L 500.4050, L506.1000, L500.4100, L100.0100 #### [facility] [address] [place], [address] T PROT 7.6 g/dL Normal 6.4-8.2 [facility] Comment on above: Performed By: #### L 500.4050, L506.1000, L500.4100, L100.0100 #### [facility] [address] [place], [address] Urea nitrogen [Mass/Vol] 13 mg/dL Normal 7-18 [facility] Comment on above: Performed By: #### L 500.4050, L506.1000, L500.4100, L100.0100 #### [facility] [address] [place], [address] Lipid Profileon 01-10-2024 Cholesterol [Mass/Vol] 219 mg/dL High 200 [facility] Comment on above: Result Comment: <200 mg/dL Desirable 200-240 mg/dL Borderline >240 mg/dL High Risk Performed By: #### L 500.4050, L506.1000, L500.4100, L100.0100 #### [facility] [address] [place], [address] Cholesterol in HDL [Mass/Vol] 99 mg/dL Normal [facility] Comment on above: Result Comment: The drugs N-Acetylcysteine and Metamizole may falsely depress this assay. Reference Range HDL <40 mg/dL Low HDL Cholesterol HDL >or= 60 mg/dL High HDL Cholesterol Performed By: #### L 500.4050, L506.1000, L500.4100, L100.0100 #### [facility] [address] [place], [address] Cholesterol in LDL [Mass/Vol] 104 mg/dL Normal 0-130 [facility] Comment on above: Performed By: #### L 500.4050, L506.1000, L500.4100, L100.0100 #### [facility] [address] [place], [address] Cholesterol in VLDL [Mass/Vol] 16 mg/dL Normal 5-40 [facility] Comment on above: Performed By: #### L 500.4050, L506.1000, L500.4100, L100.0100 #### [facility] [address] [place], [address] Triglyceride [Mass/Vol] 80 mg/dL Normal [facility] Comment on above: Result Comment: The drugs N-Acetylcysteine and Metamizole may falsely depress this assay. Serum Triglycerides Reference Interval Normal <150 mg/dL Borderline high 150 - 199 mg/dL High 200 - 499 mg/dL Very High > or = 500 mg/dL Performed By: #### L 500.4050, L506.1000, L500.4100, L100.0100 #### [facility] [address] [place], [address] Vitamin D,25 Hydroxyon 01-09 Vitamin D 25-OH 38.6 ng/mL Normal [facility] Comment on above: Result Comment: Diamond min D 25(OH) Status Range Deficiency <20 ng/mL (50nmol/L) Insufficiency 20 - 30 ng/mL (50 - 75 nmol/L) Sufficiency 30 - 100 ng/mL (75 - 250 nmol/L) Toxicity >100 ng/mL (>250 nmol/L) Performed By: #### L 500.4050, L506.1000, L500.4100, L100.0100 #### [facility] [address] [place], [address] Absolute lymphocyte countOrd ered By: ED PROVIDER on 11-23-2022 Lymphocytes Auto (Unsp spec) [#/Vol] 1.51 10*3/uL 0.83-4.51 [facility] Basophil percentageOrdered B y: ED PROVIDER on 11-23-2022 Basophils/100 WBC (Bld) 0.6 % 0-1 [facility] Chloride [Moles/Vol] 105 mmol/L 98-107 [facility] Eosinophils/100 WBC (Bld) 2.8 % 0-5 [facility] Glucose [Mass/Vol] 126 mg/dL 74-106 [facility] Comment on above: Fasting Glucose resu lt greater than or equal to 126 mg/dL suggests DIABETES MELLITUS per A.D.A. criteria. Neutrophils (Bld) [#/Vol] 5.8 10*3/uL 2.0-7.7 [facility] Neutrophils/100 WBC (Bld) 72.8 % 47-70 [facility] Potassium [Moles/Vol] 3.5 mmol/L 3.5-5.1 [facility] Sodium [Moles/Vol] 140 mmol/L 136-145 [facility] WBC (Bld) [#/Vol] 7.9 10*3/uL 4.4-11.0 [facility] Blood erythrocytes count (nu mber/volume)Ordered By: ED PROVIDER on 11-23-2022 RBC (Bld) [#/Vol] 5.17 10*6/uL 4.2-5.4 [facility] Blood hemoglobin measurement (mass/volume)Ordered By: ED PROVIDER on 11-23-2022 Hemoglobin (Bld) [Mass/Vol] 14.9 g/dL 12.0-15.0 [facility] Blood lymphocytes/100 leukoc ytesOrdered By: ED PROVIDER on 11-23-2022 Lymphocytes/100 WBC (Bld) 19.1 % 19-41 [facility] Blood monocytes/100 leukocyt esOrdered By: ED PROVIDER on 11-23-2022 Monocytes/100 WBC (Bld) 4.4 % 0-10 [facility] Blood platelet mean volumeOr dered By: ED PROVIDER on 11-23-2022 Platelet mean volume (Bld) [Entitic vol] 10.5 fL 6.2-12.0 [facility] COVID-19 virus antigen assay Ordered By: Jacob Mar on 11-23-2022 SARS-CoV-2 (COVID-19) Ag IA.rapid Ql (Resp) [facility] Determination of erythrocyte mean corpuscular volume (MCV)Ordered By: ED PROVIDER on 11-23-2022 MCV (RBC) [Entitic vol] 89.9 fL 81-99 [facility] Hematocrit Auto (Bld) [Volum e fraction]Ordered By: ED PROVIDER on 11-23-2022 Hematocrit (Bld) [Volume fraction] 46.5 % 37-47 [facility] - Chemistry and C hemistry - challengeOrdered By: ED PROVIDER on 11-23-2022 CO2 [Moles/Vol] 31.0 mmol/L 21.0-32.0 [facility] Urea nitrogen/Creatinine [Mass ratio] 23.0 mg/mg 10-20 [facility] - Hematology and Cell countsOrdered By: ED PROVIDER on 11-23-2022 Erythrocyte distribution width (RBC) [Entitic vol] 43.5 fL 35.1-43.9 [facility] Erythrocyte distribution width (RBC) [Ratio] 13.2 % 11.6-14.6 [facility] Immature granulocytes/100 WBC (Bld) 0.300 % 0.0-0.9 [facility] Comment on above: IG% - Immature Granu locytes (promyelocytes, myelocytes and metamyelocytes) > 1% indicates that a LEFT SHIFT is Present. MCH (RBC) [Entitic mass] 28.8 pg 27.0-32.0 [facility] Nucleated RBC/100 WBC (Bld) [Ratio] 0 % 0-5 [facility] ([facility]) [Mass/Vol]Or dered By: ED PROVIDER on 11-23-2022 MCHC (RBC) [Mass/Vol] 32.0 g/dL 32-36 [facility] No Panel InformationOrdered By: ED PROVIDER on 11-23-2022 Estimated Creatinine Clearance Calc 37.74 ml/min [facility] Estimated GFR (MDRD) Amer 113 mL/min >60 [facility] Comment on above: GFR Calc Estimated GFR (MDRD) Non-Af Amer 93 mL/min >60 [facility] Comment on above: Non- GFR Calc Platelets bldOrdered By: ED PROVIDER on 11-23-2022 Platelets (Bld) [#/Vol] 208 10*3/uL 150-450 [facility] Serum or plasma calcium ulysses urement (mass/volume)Ordered By: ED PROVIDER on 11-23-2022 Calcium [Mass/Vol] 9.1 mg/dL 8.5-10.1 [facility] Serum or plasma creatinine m easurement (mass/volume)Ordered By: ED PROVIDER on 11-23-2022 Creatinine [Mass/Vol] 0.65 mg/dL 0.55-1.02 [facility] Comment on above: The validity of the calculated GFR & GFRAA in patients over 70 years has not been determined. Clinical correlation is essential. Serum or plasma urea nitroge n measurement (mass/volume)Ordered By: ED PROVIDER on 11-23-2022 Urea nitrogen [Mass/Vol] 15 mg/dL 7-18 [facility] Thin prep Papanicolaou smear with manual screeningOrdered By: ED PROVIDER on 11-23-2022 Thin prep Papanicolaou smear with manual screening 4 5-15 [facility] Provider Note - ED v2on 07-10 Provider [...] SIGNS: T PRBP SpO2O2(LPM) %FiO2 Method 30-Jul-2020 09:55:[id number] /74 96 MEDICAL DECISION MAKING/ED COURSE MDM/ED [...] She went to see her PCP (Dr. Brown) on Saturday - he felt her symptoms [...] nearly full ext (more content not included)... [facility] XR Spine Cervical 4 or 5 Vie wson 07-10-2018 XR Spine Cervical 4 or 5 Views Exam Date/Time: 07/10/2018 11:40 EDT Reason for Exam: left shoulder pain Report STUDY: XR Spine Cervical 4 or 5 Views; 07/10/2018 11:40 am INDICATION: left shoulder pain. COMPARISON: None. ACCESSION NUMBER(S): [id number] ORDERING CLINICIAN: Eliazar Brown TECHNIQUE: Five views [...] Signed by: Beto Cameron MD Technologist: R [facility] XR Hip 2-3 Views Righton XR Hip 2-3 Views Right Exam Date/Time: 07/04/2018 10:58 EDT Reason for Exam: right hip pain Report STUDY: XR Hip 2-3 Views Right; 07/04/2018 10:58 am INDICATION: right hip pain. COMPARISON: None. ACCESSION NUMBER(S): [id number] ORDERING CLINICIAN: Eliazar Brown TECHNIQUE: AP and [...] Signed by: Beto Cameron MD Technologist: MADHAVI [facility] XR Shoulder Complete Lefton 07-04-2018 XR Shoulder Complete Left Exam Date/Time: 07/04/2018 10:58 EDT Reason for Exam: left shoulder pain Report STUDY: XR Shoulder Complete Left; 07/04/2018 10:58 am INDICATION: left shoulder pain. COMPARISON: None. ACCESSION NUMBER(S): [id number] ORDERING CLINICIAN: Eliazar Brown TECHNIQUE: 5 views [...] Signed by: Beto Cameron MD Technologist: MADHAVI [facility] Vital Signs Date Time Vital Sign Value Performing Clinician Carolynn de la rosa 12-23-2024 19:55-0400 Body temperature 97.2 [degF] Lin Reid LOOM REPAIRER-C Work Phone: [facility] 12-23-2024 19:55-0400 Diastolic blood pressure 70 mm[Hg] Lin Reid LOOM REPAIRER-C Work Phone: [facility] 12-23-2024 19:55-0400 Heart rate 78 /min Lin Reid LOOM REPAIRER-C Work Phone: [facility] 12-23-2024 19:55-0400 Respiratory rate 18 /min Lin Reid LOOM REPAIRER-C Work Phone: [facility] 12-23-2024 19:55-0400 SaO2% (BldA) [Mass fraction] 98 % Lin Reid LOOM REPAIRER-C Work Phone: [facility] 12-23-2024 19:55-0400 Systolic blood pressure 183 mm[Hg] Lin Reid LOOM REPAIRER-C Work Phone: [facility] 12-23-2024 16:31-0400 Body height 160.02 cm Lin Reid LOOM REPAIRER-C Work Phone: [facility] 12-23-2024 16:31-0400 Body mass index (BMI) [Ratio] 24.8 kg/m2 Lin Reid LOOM REPAIRER-C Work Phone: [facility] 12-23-2024 16:31-0400 Body weight 63.7 kg Lin Reid LOOM REPAIRER-C Work Phone: [facility] 11-23-2022 22:18-0400 Diastolic blood pressure 90 mm[Hg] [facility] 11-23-2022 22:18-0400 Heart rate 82 /min [facility] 11-23-2022 22:18-0400 Respiratory rate 20 /min [facility] 11-23-2022 22:18-0400 SaO2% (BldA) [Mass fraction] 93 % [facility] 11-23-2022 22:18-0400 Systolic blood pressure 160 mm[Hg] [facility] 11-23-2022 19:16-0400 Body height 160.02 cm [facility] 11-23-2022 19:16-0400 Body mass index (BMI) [Ratio] 25.8 kg/m2 [facility] 11-23-2022 19:16-0400 Body temperature 97.5 [degF] [facility] 11-23-2022 19:16-0400 Body weight 66.22 kg [facility] Encounters Encounter Date Encounter Type Care Provider Facility Start: 12-23-2024 End: 12-23-2024 Emergency department patient visit Lin Franklin Facility:[facility] Start: 04-14-2024 End: 04-14-2024 ambulatory Howell Franklin Facility:[facility] Start: 01-10-2024 End: 01-10-2024 ambulatory Lin Reid Facility:[facility] Start: 11-23-2022 End: 11-23-2022 Emergency department patient visit [facility] Work Phone: Start: 04-13-2022 End: 04-13-2022 ambulatory [facility] Work Phone: Start: 04-13-2022 End: 04-13-2022 Patient encounter procedure [facility] Start: 07-30-2020 End: 07-30-2020 Emergency department patient visit Barb Wise [facility] Start: 07-10-2018 End: 07-11-2018 Patient encounter procedure Eliazar Brown Facility:[facility] Start: 07-10-2018 Patient encounter procedure Facility:[id number] Start: 07-04-2018 End: 07-04-2018 Patient encounter procedure Bud Quinn Facility:[facility] Start: 07-04-2018 End: 07-05-2018 Patient encounter procedure Eliazar Brown Facility:[facility] Start: 07-04-2018 Patient encounter procedure Facility:[id number] Procedures Date Procedure Procedure Detail Performing Clinician Start: 12-23-2024 Radiologic exam ches t 2 views Lin Reid LOOM REPAIRER-C Work Phone: Start: 12-23-2024 Estimated creatinine clearance Lin Reid LOOM REPAIRER-C Work Phone: Start: 11-23-2022 Viral antigen assay Start: 04-13-2022 Screening mammography Plan of Treatment Date Care Activity Detail Author Start: 12-23-2024 [facility] Start: 12-23-2024 [facility] Start: 11-23-2022 [facility] Patient Education [facility] Work Phone: Patient referral [facility] Work Phone: Payers Date Payer Category Payer Private Health Insurance [id number] 2024 Self-pay [id number] 2018 Private Health Insurance 2008 Unknown 1945 Unknown [id number] 2.16.84 [id number] 1945 Unknown [id number] 2.16.84 [id number] 1945 Unknown [id number] 2.16.84 [id number] 1945 Unknown [id number] 2.16. [id number] 1945 Unknown [id number] 2.16. [id number] Private Health Insurance [facility] Unknown [id number] 2.16.8 [id number] Unknown [id number] 2.16.8 [id number] Unknown [id number] 2.16.8 [id number] Social History Date Type Detail Facility [facility] Start: 11-23-2022 Tobacco smokin g consumption unknown [facility] Start: 1945 Sex Assigned At Female [facility] Start: 12-23-2024 Tobacco smoking status NHIS Ex-smoker (finding) [facility] Sex Female [facility] Mental Status Date Assessment Result Facility 12-23-2024 Cognitive function Level Of Consciousness Awake [facility] Work Phone: Discharge summary 12-23-2024 Note Date & Type Note Facility 12-23-2024 Discharge summary [facility] Radiology Diagnostic study note 12-23-2024 Note Date & Type Note Facility 12-23-2024 Radiology Diagnostic study note [facility] Imaging Services [address] [place], [place] [address] Chest PA and Lateral MR#: [id number] Acct: [id number] Name: CHRISTY QUEZADA Rep #: [id number] : 1945 F 79 From: Manny Kennedy MD PCP: DANNY Osorio Status: [facility] ER Study:Chest PA and Lateral Date of Exam: 12/23/24 Exam# [id number] Ordering Dr: Javon Matthew DO PROCEDURE: CHEST PA AND LATERAL 12/23/2024 REASON FOR EXAM: HYPERTENSION TECHNIQUE: Procedure Code: RADCXR Modality: DX Procedure: CHEST PA AND LATERAL FINDINGS: The heart is normal in size. The lungs are clear. Lungs are hyperaerated. No acute osseous abnormalities. RAD/Chest PA and Lateral IMPRESSION: Hyperaerated lungs which may reflect COPD. Reading Location: [id number] CC: LOOM REPAIRER-C Lin Reid; Dr. Javon Matthew DO ~ Joiner Apprentice: Signed [facility] Discharge summary 12-23-2024 Note Date & Type Note Facility 12-23-2024 Discharge summary Note Date/Time December 23, 2024 7:56pm [facility] Medical Records Department [address] [place] [id number] Emergency Department Summary 12/23/24 MR#: [id number] Acct: [id number] Name: CHRISTY QUEZADA Rep #:[id number] : 1945 79 From: Javon Monae PCP: DANNY Osorio Status:[facility] ER Location: ED HPI History of Present [...] any headaches. Patient denies any visual changes. [facility] Medical History (Updated 12/23/24 @ 19:44 [...] DAILY Unknown History mcg (2,000 unit) capsule jetdossb-prh-idlvx ac 400 1 tab PO DAILY 11/23/22 [...] 80.0 H Lymph % (Auto) 14.5 L [place] % (Auto) 4.6 Eos % (Auto) 0.3 [...] lungs which may reflect COPD. Reading Location: [address] PA and lateral chest x-ray was [...] sinus rhythm with a rate of 74. [place] interval, QRS interval, and QTc intervals were all normal. [place] was normal. There are no acute ST [...] Care Provider: Lin Reid Referrals: Lin Reid, LOOM REPAIRER-Iliana [Primary Care Provider, Family Practice] - 3-5 Days Print Language: Vietnamese Disposition Disposition: Home, Self Care What to do if you have Problems For any increased pain, shortness of breath, bleeding, nausea or vomiting, chestpain, or any unexpected problems, contact your Primary Care Provider. Call [facility] ([phone]) or report to the closest Emergency Room. Call 911 if necessary. 12/23/24 [id number] <Electronically signed by Javon Matthew DO> Cosigner Signature (if applicable): CC: DANNY Reid ~ Signed [facility] Work Phone: Evaluation note Note Date & Type Note Facility Evaluation note No assessment information availa ble [facility] Work Phone: Reason for referral (narrative) Note Date & Type Note Facility Reason for referral (narrative) No reason for referral information available [facility] Work Phone: Summary Purpose Family History No Family History Records FoundNo Family History Records FoundNo Family History Records FoundNo Family History Records Found Advance Directives Advance Directive Response Recorded Date/ Time Living Will No November 23, 2022 9:37pm Power of Finance Broker No November 9:37pm Advance Directive Response Recorded Date/ Time Do you have a Healthcare Power of Finance Broker? No December 23, 2024 5:41pm Chief Complaint and Reason for Visit Chief Complaint SCREENING Chief Complaint sob Chief Complaint Admit Date HTN December 23, 2024 4 :30pm Additional Source Comments INFORMATION SOURCE (unrecogn ized section and content) DATE CREATED AUTHOR 07/18/2018 [facility] DATE CREATED AUTHOR AUTHOR'S ORGANIZ ATION 07/21/2018 [facility] DATE CREATED AUTHOR AUTHOR'S ORGANIZ ATION 08/05/2020 [facility] DATE CREATED AUTHOR AUTHOR'S ORGANIZ ATION 12/30/2024 [facility] <item> Privacy Markings (unrecogniz ed section and [...] BE BASED ON THE PRIMARY CLINICAL RECORDS. [facility] [employer] [facility]. provides no warranty or guarantee of the accuracy or completeness of information in this document.
== END | disposition home or self-care (01) ==
LOC: PSN 12:01
PROVIDERS: PCP Nurse Practitioner Family; Referring Provider Emergency Medicine; Visit Provider Emergency Medicine
DX: R55 Syncope and collapse (principal)
CPT/HCPCS: 93225; 93226